=== PATIENT | female | born 1940 | race Caucasian/White ===

== ENCOUNTER 2024-01-12 10:40 | Observation (INO) | payer MEDICARE, SELFPAY ==
[2024-01-12] VITALS (18 sets, daily range): BP systolic 117–150; BP diastolic 43–94; PULSE 62–98; RESP 16–20; TEMP 36.3–36.5; O2SAT 83–99; BMI 30.9
--- NOTE | 2024-01-12 10:41 | ED_ITS ---
HPI - Fall General Chief Complaint: Trauma Stated Complaint: glf Time Seen by Provider: 01/12/24 10:40 History of Present Illness HPI Narrative: 83-year-old female with history of dementia, oriented to self only at baseline presents by EMS from her assisted facility for ground level fall. Patient had an unwitnessed fall with what appears to be facial injury. Patient denies loss of consciousness but is an unreliable historian. She does not use any blood thinners. Patient has a hematoma to the left side of her face. Patient denies pain in any other location and denies other injuries. Related Data Allergies Allergy/AdvReac Type Severity Reaction Status Date / Time No Known Drug Allergies Allergy Verified 01/12/24 10:54 Review of Systems Review of Systems Narrative: Limited due to dementia Patient History Social History Smoking Status: Never smoker Exam Narrative Exam Narrative: Const: Awake, alert, no acute distress, nontoxic appearing Eyes: PERRL, EOMI Cardiac: regular rate, regular rhythm, generalized left-sided rib tenderness without crepitus or deformity, no subcutaneous emphysema RESP: unlabored, clear bilaterally, no wheezing GI: Soft, nontender, nondistended, no rebound, no guarding MSK: Atraumatic, full range of motion, pulses equal Skin: Warm, Dry, contusion left forehead and periorbital region Neuro: AO x1, CN II-XII grossly intact, moves all extremities Initial Vital Signs Initial Vital Signs: Vital Signs Temperature 97.3 F L 01/12/24 10:40 Pulse Rate 80 01/12/24 10:40 Respiratory Rate 16 01/12/24 10:40 Blood Pressure 119/94 H 01/12/24 10:40 Pulse Oximetry 99 01/12/24 10:40 Oxygen Delivery Method Room Air 01/12/24 10:40 Course Orders Ordered: ED Orders 01/12/24 10:40 CT cervical spine wo con Stat CT facial bones wo con Stat CT head/brain wo con Stat 01/12/24 10:46 XR ribs LT min 3V w CXR1V Stat 01/12/24 11:40 CBC Auto Diff [Complete Blood Count AUTO DIFF] Stat CMP [Comprehensive Metabolic Panel] Stat 01/12/24 13:15 CT chest wo con Stat Vancomycin HCl/Dextrose (Vancomycin) 2,000 mg in 400 mls @ 200 mls/hr IV NOW ONE Stop: 01/12/24 14:38 Discontinued Medications Acetaminophen (Acetaminophen 325 Mg Tablet) 975 mg PO NOW ONE Stop: 01/12/24 10:47 Last Admin: 01/12/24 11:25 Dose: 975 mg Documented By: XIMENA Ceftriaxone Sodium 2,000 mg/ (Sodium Chloride) 100 mls @ 200 mls/hr IV NOW ONE Stop: 01/12/24 12:40 Last Infusion: 01/12/24 14:16 Dose: Infused Documented By: Admin: 01/12/24 12:50 Dose: 200 mls/hr Documented By: XIMENA Vital Signs Vital signs: Vital Signs - 8 hr 01/12/24 10:40 01/12/24 10:44 01/12/24 10:45 Temperature 97.3 F L Pulse Rate 80 79 Respiratory Rate 16 Blood Pressure 119/94 H Pulse Oximetry 99 84 L 83 L Oxygen Delivery Method Room Air 01/12/24 10:45 01/12/24 10:55 01/12/24 11:40 Temperature Pulse Rate 80 84 Respiratory Rate 18 Blood Pressure 119/94 H 150/90 H Pulse Oximetry 99 Oxygen Delivery Method 01/12/24 11:43 01/12/24 11:43 01/12/24 12:00 Temperature Pulse Rate 81 98 H Respiratory Rate Blood Pressure 128/58 L Pulse Oximetry 97 96 Oxygen Delivery Method 01/12/24 12:00 01/12/24 12:30 01/12/24 12:30 Temperature Pulse Rate 83 Respiratory Rate Blood Pressure 117/73 125/82 Pulse Oximetry 96 Oxygen Delivery Method 01/12/24 13:00 01/12/24 13:30 01/12/24 13:31 Temperature Pulse Rate 80 79 Respiratory Rate Blood Pressure 130/58 L Pulse Oximetry 95 94 Oxygen Delivery Method 01/12/24 13:31 01/12/24 14:02 Temperature Pulse Rate 74 74 Respiratory Rate Blood Pressure Pulse Oximetry 94 92 Oxygen Delivery Method MDM - Fall Differential Diagnosis Differential diagnosis: Likely fracture of wrist, compression fracture and concussion with loss of consciousness Lab Data 01/12/24 11:40 01/12/24 11:40 Labs: Lab Results 01/12/24 Range/Units 11:40 WBC 12.4 H (4.5-11.0) X10^3/uL RBC 4.11 (4.0-5.2) X10^6/uL Hgb 12.0 (12.0-16.0) g/dL Hct 36.7 (36-46) % MCV 89.3 (80-100) fL MCH 29.2 (26-34) PG MCHC 32.7 (30-36) % RDW 14.9 H (11.6-14.8) % Plt Count 272 (150-400) X10^3/uL Neut % (Auto) 87.3 H (50-75) % Lymph % (Auto) 4.2 L (25-40) % Snyder % (Auto) 6.8 (3-14) % Eos % (Auto) 1.5 L (2-4) % Baso % (Auto) 0.2 (0-2) % Neut # (Auto) 06920 H (5891-1428) /uL Lymph # (Auto) 500 L (5089-2147) /uL Snyder # (Auto) 800 (0-900) /uL Eos # (Auto) 200 (0-450) /uL Baso # (Auto) 0 (0-100) /uL Sodium 143 (137-145) mmol/L Potassium 3.9 (3.4-5.1) mmol/L Chloride 110 H (98-107) mmol/L Carbon Dioxide 30 (22-32) mmol/L BUN 37 H (7-17) mg/dL Creatinine 1.00 (0.52-1.04) mg/dL Estimated GFR 55 L (>60) mL/min BUN/Creatinine Ratio 37.0 H (6-22) Glucose 96 (80-110) mg/dL Calcium 9.6 (8.4-10.2) mg/dL Total Bilirubin 0.6 (0.2-1.3) mg/dL AST 28 (14-36) IU/L ALT 18 (<35) IU/L Alkaline Phosphatase 122 (38-126) U/L Total Protein 7.7 (6.3-8.2) g/dL Albumin 4.0 (3.5-5.0) g/dL Globulin 3.7 (1.7-4.1) g/dL Albumin/Globulin Ratio 1.1 (1.0-2.8) Imaging Data CT scan - chest: Radiologist's Impression: PROCEDURE: CT CHEST WO CON INDICATIONS: L RIB FRACTURES, FURTHER ASSESSMENT TECHNIQUE: Noncontrast 5 mm thick sections acquired from the pulmonary apices to the posterior costophrenic angles. 1 mm lung window, 5 mm thick coronal and sagittal and 7 mm axial MIP reformats were then acquired. For radiation dose reduction, the following was used: automated exposure control, adjustment of mA and/or kV according to patient size. COMPARISON: Left rib radiographs 01/12/2024. FINDINGS: Image quality: Diagnostic. Lower Neck: No enlarged lymph nodes. Thyroid: No thyroid nodules which require sonographic follow up, per consensus guidelines. Axillae: No enlarged lymph nodes. Chest Wall: Unremarkable. Bones: Bones are demineralized. Multiple left rib fractures with less than 1 shaft width displacement involving the lateral left 6th, 7th and 8th ribs. Nondisplaced left anterior 5th rib fracture. No acute vertebral body compression fracture. Multilevel degenerative changes of the visualized spine. Exaggerated thoracic kyphosis. Lungs and Pleura: No pneumothorax or pleural effusions. No consolidation or suspicious nodules. Heart: Heart size is normal. No pericardial effusion. Thoracic Vessels: The aorta and pulmonary arteries demonstrate normal size. Mediastinum and Odette: No enlarged lymph nodes. Esophagus: No wall thickening. No hiatal hernia. Upper Abdomen: Visualized upper abdomen solid organs and bowel loops appear normal. IMPRESSION: Left lateral 6th, 7th and 8th rib fractures with less than 1 shaft width displacement. Nondisplaced left anterior 5th rib fracture. Approved by: Chayo Hickman M.D. on 01/12/2024 at 12:56 CT - cervical spine: Radiologist's Impression: PROCEDURE: CT CERVICAL SPINE WO CON INDICATIONS: GLF/DEMENTIA/L FACIAL HEMATOMA TECHNIQUE: Noncontrast 3 mm thick sections acquired from the skull base to the T4 level. Sagittal and coronal reformats were then constructed. For radiation dose reduction, the following was used: automated exposure control, adjustment of mA and/or kV according to patient size. COMPARISON: None. FINDINGS: Image quality: Patient motion artifact limits evaluation. Bones: No fractures or dislocations. Visualized superior ribs are intact. Soft tissues: Prevertebral soft tissues are normal in thickness. No paravertebral hematomas. No apical pneumothoraces. IMPRESSION: Motion degraded exam. No acute displaced fracture or traumatic subluxation visualized. Approved by: Chayo Hickman M.D. on 01/12/2024 at 11:07 CT scan - head: Radiologist's Impression: PROCEDURE: CT FACIAL BONES WO CON INDICATIONS: GLF/DEMENTIA/L FACIAL HEMATOMA TECHNIQUE: Noncontrast 2.5 mm thick axial images acquired from the mandible through the frontal sinuses, with coronal and sagittal reformatting. For radiation dose reduction, the following was used: automated exposure control, adjustment of mA and/or kV according to patient size. COMPARISON: Same-day CT head noncontrast 01/12/2024. FINDINGS: Image quality: Motion degraded exam. Bones and teeth: Orbital cortes are intact. Sinus cortes show no fracture or deformity. Nasal bones and septum are intact. Visualized portions of the mandible demonstrate no fractures or subluxation. Zygomatic arches are intact. Pterygoid plates are intact. Visualized portions of the skull base and auditory canals are intact. Sinuses: Bilateral maxillary sinus mucous retention cysts. Mastoid air cells are aerated. Soft tissues: Left periorbital soft tissue swelling/hematoma. No enlarged lymph nodes. No soft tissue lacerations or debris. Bilateral lens replacement. Vascular: Visualized vascular structures appear normal in the absence of contrast. Bony vascular foramina and canals are intact. IMPRESSION: Left periorbital soft tissue swelling and hematoma. No associated craniofacial fracture identified within the limitation of motion degraded exam. Approved by: Chayo Hickman M.D. on 01/12/2024 at 11:15 PROCEDURE: CT HEAD/BRAIN WO CON INDICATIONS: GLF/DEMENTIA/L FACIAL HEMATOMA TECHNIQUE: Noncontrast 4.5 mm thick angled axial sections acquired from the foramen magnum to the vertex, with coronal and sagittal reformats. For radiation dose reduction, the following was used: automated exposure control, adjustment of mA and/or kV according to patient size. COMPARISON: None. FINDINGS: Image quality: Diagnostic. CSF spaces: Basal cisterns are patent. No extra-axial fluid collections. The ventricles are symmetric in size and shape. Brain: No intracranial bleeds or masses. There is moderate diffuse cerebral volume loss with resultant ventricular and sulcal prominence. There are periventricular and deep white matter chronic small vessel ischemic changes. There is intracranial internal carotid artery atherosclerosis. Skull and face: Please see separately dictated CT facial bones for additional details. Sinuses: Left maxillary sinus mucous retention cyst. IMPRESSION: No acute intracranial pathology. Please see separately dictated CT facial bones for craniofacial findings. Approved by: Chayo Hickman M.D. on 01/12/2024 at 11:01 [facility] Narrative Medical decision making narrative: Unwitnessed ground level fall with left-sided facial injury. Per EMS patient is mentating at baseline, she was oriented to self only. Not on blood thinners. CT brain, C-spine, max face ordered. On exam patient was also having some tenderness to her left chest wall. There was no crepitus or obvious deformity, however x-ray rib series ordered for assessment. Patient's daughter and son-in-law arrived shortly after. They live in [place] and today was the patient's 1st day in her new living facility. They state that they transitioned her from independent living to assisted living due to concerns about the patient caring for herself. They report concern about patient's bilateral lower extremity lymphedema and they are concerned because it appears much worse than the last time they saw her. They are concerned about cellulitis or infection. Patient does have erythema in her bilateral lower extremities. Some of this does appear to be chronic venous stasis changes, however it is warm to the touch and bright red. Vancomycin and Rocephin ordered for skin and soft tissue coverage. Laboratory work is significant for WBC count 12.4, hemoglobin 12.0, sodium 143, potassium 3.9, creatinine 1.00, GFR 55. CT brain, C-spine, maxillofacial bones shows no acute fracture or hemorrhage. Rib series significant for left 8th rib fracture with questionable 6th and 7th rib fractures. No pneumothorax seen. Plan to order chest CT dedicated to assess for rib fractures. Chest CT confirms multiple rib fractures including left lateral 6th, 7th, 8th ribs as well as anterior 5th rib fracture. Patient states she was comfortable when she was sitting still in bed, but any time she attempts to move she winces and grimaces and complains of severe pain. Discussed case with Dr. Holm of General surgery, who agrees to see patient in consult. Plan to admit patient to the hospital for treatment of lower extremity cellulitis as well as pain control of her multiple rib fractures. Critical Care Time Critical Care Time Critical Care Time: Yes Total Critical Care Time: 34 Attestation: Ground level fall with multiple left-sided rib fractures and cellulitis requiring IV antibiotics and admission. Discharge Plan Departure Patient Disposition: Admitted As Inpatient Clinical Impression: Lymphedema, Bilateral cellulitis of lower leg Multiple fractures of ribs Qualifiers: Encounter type: initial encounter Fracture type: closed Laterality: left Q ualified Code(s): S22.42XA - Multiple fractures of ribs, left side, initial encounter for closed fracture Fall Qualifiers: Encounter type: initial encounter Qualified Code(s): W19.XXXA - Unspecified fall, initial encounter Facial hematoma Qualifiers: Encounter type: initial encounter Qualified Code(s): S00.83XA - Contusion of other part of head, initial encounter Admit Date/Time: 01/12/24 14:22 Admit Provider: Elvis Ballard
--- NOTE | 2024-01-12 10:46 | DI.RAD.S_ITS ---
PROCEDURE: XR RIBS LT MIN 3V W CXR1V INDICATIONS: GLF/L RIB PAIN TECHNIQUE: 2 views of the ribs were acquired, along with a single view chest. COMPARISON: None. FINDINGS: Surgical changes and devices: None. Bones and chest wall: Left 8th rib fracture, query left 6th and 7th rib fracture. No suspicious bony lesions. Overlying soft tissues appear unremarkable. Lungs and pleura: No pleural effusions or pneumothorax. Lungs appear clear. Mediastinum: Mediastinal contours appear normal. Heart size is normal. IMPRESSION: Left 8th rib fracture. Query left 6th and 7th rib fracture. No pneumothorax. Approved by: Chayo Hickman M.D. on 01/12/2024 at 10:34
[2024-01-12] MEDS: ACETAMINOPHEN 325 MG TABLET 975 MG PO ×2 (11:25→16:43)
[2024-01-12 11:50] LABS: Add Manual Diff / Slide Review NO; Basophils Absolute Auto 0 /uL (0-100); Basophils Percent Auto 0.2 % (0-2); Eosinophils Absolute Auto 200 /uL (0-450); Eosinophils Percent Auto 1.5 % (2-4); Hematocrit 36.7 % (36-46); Lymphocytes Absolute Auto 500 /uL (1100-4500); Lymphocytes Percent Auto 4.2 % (25-40); Mean Corpuscular HGB Conc 32.7 % (30-36); Mean Corpuscular Hemoglobin 29.2 PG (26-34); Mean Corpuscular Volume 89.3 fL (80-100); Monocytes Absolute Auto 800 /uL (0-900); Monocytes Percent Auto 6.8 % (3-14); Neutrophils Absolute Auto 10800 /uL (1500-7000); Neutrophils Percent Auto 87.3 % (50-75); Platelet Count 272 X10^3/uL (150-400); Red Blood Cell Count 4.11 X10^6/uL (4.0-5.2); Red Cell Distribution Width 14.9 % (11.6-14.8); White Blood Cell Count 12.4 X10^3/uL (4.5-11.0)
[2024-01-12 12:01] LABS: Alanine Aminotransferase 18 IU/L (<35); Albumin Globulin Ratio 1.1 (1.0-2.8); Alkaline Phosphatase 122 U/L (38-126); Aspartate Aminotransferase 28 IU/L (14-36); Bilirubin Total 0.6 mg/dL (0.2-1.3); Blood Urea Nitrogen 37 mg/dL (7-17); Calcium 9.6 mg/dL (8.4-10.2); Carbon Dioxide 30 mmol/L (22-32); Chloride 110 mmol/L (98-107); Estimated Glomerular Filt Rate 55 mL/min (>60); Globulin 3.7 g/dL (1.7-4.1); Glucose 96 mg/dL (80-110); HEMOLYSIS < 15 (0-50); Potassium 3.9 mmol/L (3.4-5.1); Sodium 143 mmol/L (137-145); Total Protein 7.7 g/dL (6.3-8.2)
[2024-01-12] MEDS: cefTRIAXone 2,000 MG in SODIUM CHLORIDE 0.9% 100 ML 200 MG IV (12:50)
--- NOTE | 2024-01-12 13:15 | DI.CT.S_ITS ---
PROCEDURE: CT CHEST WO CON INDICATIONS: L RIB FRACTURES, FURTHER ASSESSMENT TECHNIQUE: Noncontrast 5 mm thick sections acquired from the pulmonary apices to the posterior costophrenic angles. 1 mm lung window, 5 mm thick coronal and sagittal and 7 mm axial MIP reformats were then acquired. For radiation dose reduction, the following was used: automated exposure control, adjustment of mA and/or kV according to patient size. COMPARISON: Left rib radiographs 01/12/2024. FINDINGS: Image quality: Diagnostic. Lower Neck: No enlarged lymph nodes. Thyroid: No thyroid nodules which require sonographic follow up, per consensus guidelines. Axillae: No enlarged lymph nodes. Chest Wall: Unremarkable. Bones: Bones are demineralized. Multiple left rib fractures with less than 1 shaft width displacement involving the lateral left 6th, 7th and 8th ribs. Nondisplaced left anterior 5th rib fracture. No acute vertebral body compression fracture. Multilevel degenerative changes of the visualized spine. Exaggerated thoracic kyphosis. Lungs and Pleura: No pneumothorax or pleural effusions. No consolidation or suspicious nodules. Heart: Heart size is normal. No pericardial effusion. Thoracic Vessels: The aorta and pulmonary arteries demonstrate normal size. Mediastinum and Odette: No enlarged lymph nodes. Esophagus: No wall thickening. No hiatal hernia. Upper Abdomen: Visualized upper abdomen solid organs and bowel loops appear normal. IMPRESSION: Left lateral 6th, 7th and 8th rib fractures with less than 1 shaft width displacement. Nondisplaced left anterior 5th rib fracture. Approved by: Chayo Hickman M.D. on 01/12/2024 at 12:56
[2024-01-12] MEDS: VANCOMYCIN 2,000 MG/400 ML PIGGYBACK 200 MG IV (14:22)
--- NOTE | 2024-01-12 15:26 | PC.NURSE ---
Dr. Ballard updated on allergies as they were not known at ED time of visit.
--- NOTE | 2024-01-12 15:49 | PC.NURSE ---
Addendum entered by Sandra Whatley R.N. 01/12/24 16:22: Called Anisha Conteh to request POLST form tony oates was sent. [facility] stated they do not have POLST form. Original Note: Admit: pt arrived via stretcher from ED at approximately 1530, transferred from stretcher to bed in room 215. VSS, A&Ox2, widespread excoriation in pannus and groin, BLE redness, 3+ edema, bruising and swelling of L eye. Amelia jimenez DPOA at bedside, providing history. Provider at bedside.
--- NOTE | 2024-01-12 16:23 | PM.HP.1 ---
History of Present Illness History of Present Illness Date Patient Seen: 01/12/24 Time Patient Seen: 16:00 Chief complaint: glf Narrative: Pt is an 83 yo female with history of dementia, depression, urinary incontinence, chronic LE lymphedema, TIA, severe hypertension, osteoporosis transported to ED by EMS post ground level fall outside of [facility]. Pt had moved in to [facility] just yesterday from independent living facility in [facility]. She had apparently walked a short distance outside and had unwitnessed fall. Found by passerby and taken inside where facility staff called EMS. Pt was found to have 4 left sided rib fractures on CT. Also noted to have left orbital hematoma without fracture on facial CT. Head and spine CT report showed no trauma or bleed. Pt has impaired short-term memory and not clear if she recalls fall this morning. She has fallen at least a couple of times in the past and hospitalized for traumatic shoulder fracture. Patient has history of chronic lymphedena of LEs. Her niece (POA) states apearance of legs has worsened although time frame is unclear. On med list it is noted she is on daily doxycycline, per med rec 30 tabs prescribed on 12/18. Pt denies pain in the legs. Denies fever, cough, other resp symptoms, hx of heart failure. [facility] Medical History (Updated 01/12/24 @ 15:23 by Carole Bui RN) Age-related cataract, morgagnian type, bilateral Alzheimer disease Urinary incontinence Rash and other nonspecific skin eruption Cellulitis of left lower limb Transient ischemic attack Osteoporosis Primary hypertension Personal history of malignant neoplasm of ovary Unspecified dementia, unspecified severity, without behavioral disturbance, psychotic disturbance, mood disturbance, and anxiety Unspecified dementia, mild, without behavioral disturbance, psychotic disturbance, mood disturbance, and anxiety Depression, unspecified Unspecified cataract Localized edema Social History Smoking Status: Never smoker alcohol intake: former Meds Home Medications and Allergies Home Medications Medication Instructions Recorded Confirmed Type Lactobacillus rhamnosus GG 10 1 cap PO DAILY 01/12/24 01/12/24 History billion cell-inulin 200 mg capsule ([employer]) acetaminophen 325 mg capsule 650 mg PO Q4H PRN pain/fever 01/12/24 01/12/24 History aspirin 81 mg chewable tablet 81 mg PO DAILY 01/12/24 01/12/24 History cholecalciferol (vitamin D3) 25 25 mcg PO DAILY 01/12/24 01/12/24 History mcg (1,000 unit) tablet (Vitamin D3) cranberry 500 mg capsule 1,000 mg PO DAILY 01/12/24 01/12/24 History donepezil 10 mg tablet 10 mg PO DAILY 01/12/24 01/12/24 History doxycycline hyclate 100 mg capsule 100 mg PO DAILY 01/12/24 01/12/24 History enalapril maleate 20 mg tablet 30 mg PO DAILY 01/12/24 01/12/24 History furosemide 40 mg tablet 40 mg PO DAILY 01/12/24 01/12/24 History lorazepam 0.5 mg tablet 0.5 mg PO DAILY PRN Anxiety 01/12/24 01/12/24 History magnesium hydroxide 400 mg/5 mL 400 mg PO DAILY PRN Constipation 01/12/24 01/12/24 History oral suspension (Milk of Magnesia) melatonin 3 mg tablet 3 mg PO BEDTIME PRN Insomnia 01/12/24 01/12/24 History multivitamin with minerals 1 tab PO DAILY 01/12/24 01/12/24 History nebivolol 10 mg tablet 10 mg PO DAILY 01/12/24 01/12/24 History quetiapine 50 mg tablet 50 mg PO BID 01/12/24 01/12/24 History sertraline 50 mg tablet 50 mg PO DAILY 01/12/24 01/12/24 History spironolactone 25 mg tablet 25 mg PO DAILY 01/12/24 01/12/24 History triamcinolone acetonide 0.1 % 1 applic topical BID 01/12/24 01/12/24 History topical cream Allergies Allergy/AdvReac Type Severity Reaction Status Date / Time amoxicillin Allergy Unknown Verified 01/12/24 15:23 cephalexin Allergy Unknown Verified 01/12/24 15:23 Sulfa (Sulfonamide Allergy Unknown Verified 01/12/24 15:23 Antibiotics) Exam Vital Signs (past 8 hours): - 01/12/24 10:40 01/12/24 10:44 01/12/24 10:45 Temperature 97.3 F L Pulse Rate 80 79 Respiratory Rate 16 Blood Pressure 119/94 H Pulse Oximetry 99 84 L 83 L Oxygen Delivery Method Room Air 01/12/24 10:45 01/12/24 10:55 03/17/24 11:40 Temperature Pulse Rate 80 84 Respiratory Rate 18 Blood Pressure 119/94 H 150/90 H Pulse Oximetry 99 Oxygen Delivery Method 01/12/24 11:43 01/12/24 11:43 01/12/24 12:00 Temperature Pulse Rate 81 98 H Respiratory Rate Blood Pressure 128/58 L Pulse Oximetry 97 96 Oxygen Delivery Method 01/12/24 12:00 01/12/24 12:30 01/12/24 12:30 Temperature Pulse Rate 83 Respiratory Rate Blood Pressure 117/73 125/82 Pulse Oximetry 96 Oxygen Delivery Method 01/12/24 13:00 01/12/24 13:30 01/12/24 13:31 Temperature Pulse Rate 80 79 Respiratory Rate Blood Pressure 130/58 L Pulse Oximetry 95 94 Oxygen Delivery Method 01/12/24 13:31 01/12/24 14:02 01/12/24 14:30 Temperature Pulse Rate 74 74 62 Respiratory Rate Blood Pressure 130/58 L Pulse Oximetry 94 92 93 Oxygen Delivery Method 01/12/24 15:00 01/12/24 15:13 01/12/24 16:16 Temperature Pulse Rate 74 68 Respiratory Rate 16 Blood Pressure 130/58 L 128/58 L Pulse Oximetry 95 96 Oxygen Delivery Method Room Air Room Air Oxygen Delivery Method Room Air Narrative Exam Narrative: General: alert, pleasant, calm HEENT: left periorbital edema, no facial deformity, rajni clear Lungs: clear Heart: regular, no murmur Abd: soft, nt Ext: bilateral 4+ weeping edema below knees, shallow stasis ulcerations in bilat LEs, sig erythema shins/calves above ankles, patchy scaling of inflamed skin areas, onychomycosis Skin: additionally has superficial excoriation, weeping and erythema below left breast Neuro: alert, oriented to person and hospital only, cooperative Objective Labs 01/12/24 11:40 01/12/24 11:40 Labs: Laboratory Results - last 24 hr 01/12/24 11:40 WBC 12.4 H RBC 4.11 Hgb 12.0 Hct 36.7 MCV 89.3 MCH 29.2 MCHC 32.7 RDW 14.9 H Plt Count 272 Neut % (Auto) 87.3 H Lymph % (Auto) 4.2 L Kingfisher % (Auto) 6.8 Eos % (Auto) 1.5 L Baso % (Auto) 0.2 Neut # (Auto) 67225 H Lymph # (Auto) 500 L Kingfisher # (Auto) 800 Eos # (Auto) 200 Baso # (Auto) 0 Sodium 143 Potassium 3.9 Chloride 110 H Carbon Dioxide 30 BUN 37 H Creatinine 1.00 Estimated GFR 55 L BUN/Creatinine Ratio 37.0 H Glucose 96 Calcium 9.6 Total Bilirubin 0.6 AST 28 ALT 18 Alkaline Phosphatase 122 Total Protein 7.7 Albumin 4.0 Globulin 3.7 Albumin/Globulin Ratio 1.1 Assessment & Plan Assessment & Plan narrative: 1. Ground level fall with multiple rib fractures -on CT fractures of left 5 th, 6 th, 7 th and 8 th ribs -Tylenol 975 mg q8 hours -consult PT and OT (pt currently uses cane and has hx of prior falls) 2. Left orbital hematoma without fracture -monitor 3. Chronic bilateral LE lymphedema with possible cellulitis -pt currently on doxycycline prescribed since 12/19 -allergy listed to ammoc, cephalexin and sulfa -treat poss cellulitis with Vancomycin, pharmacy to dose -cont TAC 0.1% bid -wound care consult 4. Hypertension -hx sev hypertension, appears well managed now -cont current meds (enalepril, furosemide, spironolactone, nebivolol) -denies hx CHF 5. Dementia -appears at baseline with short term memory loss -per deannedgardo has hx of delirium in hospital setting -cont donepezil -monitor for acute delirium 6. History of depression -cont sertraline, quetiapine, and takes lorazepam prn 7. Insomnia -cont melatonin HS prn DVT prevention: enoxaprin DPOA: Amelia vogt Code status: DNR (Per niece), POLST not available
[2024-01-12] MEDS: DOCUSATE 100 MG CAPSULE PO (20:15)
[2024-01-12] MEDS: MELATONIN 3 MG TABLET PO (20:15)
[2024-01-12] MEDS: QUETIAPINE 25 MG TABLET 50 MG PO (20:15)
[2024-01-13] MEDS: ACETAMINOPHEN 325 MG TABLET 975 MG PO ×3 (01:11→16:32)
[2024-01-13 01:27] VITALS: O2SAT 96
[2024-01-13 01:38] VITALS: BP 119/42; PULSE 60; RESP 18; TEMP 35.9; O2SAT 96
[2024-01-13 05:38] VITALS: BP 138/56; PULSE 60; RESP 17; TEMP 36.1; O2SAT 97
[2024-01-13 08:23] VITALS: BP 132/52; PULSE 65; O2SAT 96
--- NOTE | 2024-01-13 08:48 | PC.NURSE ---
Addendum entered by Angy Shi R.N. 01/13/24 11:24: Patient worked with pt/ot and her sats went down to the mid 80s with exertion. She recovers at rest and is in the 90s. Will keep an eye on her oxygen saturations. Original Note: Patient has 3+ lymph edema to her bilateral lower extremities, they are dry and bright red. She states that she is comfortable at this time. She ate breakfast and is now watching television.
[2024-01-13] MEDS: ENOXAPARIN 40 MG/0.4 ML SYRINGE SUBCUT (09:23)
[2024-01-13] MEDS: ASPIRIN 81 MG CHEW TAB PO (09:24)
[2024-01-13] MEDS: DONEPEZIL 5 MG TABLET 10 MG PO (09:24)
[2024-01-13] MEDS: SPIRONOLACTONE 25 MG TABLET PO (09:24)
[2024-01-13] MEDS: FUROSEMIDE 40 MG TABLET PO (09:24)
[2024-01-13] MEDS: SERTRALINE 50 MG TABLET PO (09:24)
[2024-01-13] MEDS: DOCUSATE 100 MG CAPSULE PO ×2 (09:24→20:07)
[2024-01-13] MEDS: QUETIAPINE 25 MG TABLET 50 MG PO ×2 (09:26→20:07)
[2024-01-13] MEDS: ENALAPRIL 5 MG TABLET 30 MG PO (09:58)
--- NOTE | 2024-01-13 10:40 | OT.IP.EVAL ---
Past Medical History (Last Updated 01/12/24 @ 15:23 by Carole Bui RN) Age-related cataract, morgagnian type, bilateral Alzheimer disease Cellulitis of left lower limb Depression, unspecified Localized edema Osteoporosis Personal history of malignant neoplasm of ovary Primary hypertension Rash and other nonspecific skin eruption Transient ischemic attack Unspecified cataract Unspecified dementia, mild, without behavioral disturbance, psychotic disturbance, mood disturbance, and anxiety Unspecified dementia, unspecified severity, without behavioral disturbance, psychotic disturbance, mood disturbance, and anxiety Urinary incontinence Occupational Therapy Inpatient Evaluation/Re-Eval M1 PT/OT-IP Prior Functional Status Start: 01/13/24 09:07 Freq: NEEDED Status: Active Protocol: Document 01/13/24 10:05 MB (Rec: 01/13/24 11:23 MB [id number]) Medical Review Prior Functional Status Medical History Reviewed Yes Communication Unsure baseline diet and communication, pt with history of memory changes Mobility and Gait Falls, used SPC Activities of Daily Living and IADL's May have needed assistance but was previously at independent living and not receiving a lot of assistance Social History Household Members none Living Arrangements Assisted Living Number of Floors (Floors) One Floor Number of Stairs To Enter/Railing? No steps Home Equipment Straight Cane Employment Status Retired Additional Social History Comment Pt lives at facility and has accessible BR and living situation. She is sleeping in recliner vs hospital adjustable bed M1 PT/OT-IP Prior Functional Status Start: 01/13/24 11:07 Freq: NEEDED Status: Active Protocol: Document 01/13/24 11:08 CGR (Rec: 01/13/24 11:28 CGR [id number]) Medical Review Prior Functional Status Medical History Reviewed Yes Communication Pt is an effective verbal communicator but is advanced dementia. Mobility and Gait Pt was ambulating short distances with a SPC. Pt was minimally SOB with ambulation. Activities of Daily Living and IADL's Pt was starting to have difficulty with simple ADLs and her grooming and hygiene were starting to suffer per the niece. Prior Functional Level (Other details) Pt just moved into a new facility in [place] where she has a good friend near by. Social History Household Members caregiver Living Arrangements Assisted Living Number of Stairs To Enter/Railing? elevator to room Home Environment High Toilet,Walk in Shower, Built-In Shower Seat Home Equipment Straight Cane,Grab Bars Near Toilet,Grab Bars In Shower Employment Status Retired Additional Social History Comment Pt's niece answered questions to the best of her knowlege as pt has just moved into her new facility. M2 OT-IP Current Condition Start: 01/13/24 11:07 Freq: Status: Active Protocol: Document 01/13/24 11:08 CGR (Rec: 01/13/24 11:28 CGR [id number]) Occupational Therapy Current Condition Current Condition Evaluation Date 01/13/24 Treatment Diagnosis GLF with L rib fx x4 and L orbital hematoma Diagnosis Onset Date 01/12/24 M3 OT- IP Subjective and Pain Start: 01/13/24 11:07 Freq: Status: Active Protocol: Document 01/13/24 11:08 CGR (Rec: 01/13/24 11:28 CGR [id number]) OT- Subjective Occupational Therapy Visit Type Type Initial Evaluation Visit Start Time 09:55 Visit Stop Time 10:40 Notes additional time spent speaking with family and organizing care. OT Pain Assessment Pain When Pain Assessed During Mobility Pain Present Pain Present Pain Reported Location Left Medial Chest Scale Used did not rate Pain Behaviors Facial Grimacing,Guarding Management Techniques Distraction,Modification of Treatment,Re-positioning M4 OT- IP ADL's Start: 01/13/24 11:07 Freq: Status: Active Protocol: Document 01/13/24 11:08 CGR (Rec: 01/13/24 11:28 CGR [id number]) OT [id number] Comments OT Self-Feeding Comments not meal time OT ADL-Grooming General Evaluation Grooming Ability Minimal Assistance Comments OT Grooming Comments Pt washed hands standing at sink with min a for getting soap and getting automatic water started. OT ADL-Oral Care Comments Oral Care Comments not performed OT ADL-Dressing General Eval Lower Body Dressing Ability Contact Guard Assistance,Total Assistance Areas Needing Assistance Underpants/Brief,Socks Comments OT Dressing Comments Pt needed CGA for donning brief and total assist for socks. OT ADL-Toileting General Evaluation Toileting Ability Standby Assistance Areas Needing Assistance Manage Clothing Comments OT Toileting Comments Pt was able to perform pericare OT ADL-Bathing Comments OT Bathing Comments not performed M5 OT- IP IADL's Start: 01/13/24 11:07 Freq: Status: Active Protocol: Document 01/13/24 11:08 CGR (Rec: 01/13/24 11:28 CGR [id number]) OT-Instrumental Activities of Daily Living Deficits IADL Deficits Identified Deficits Home Safety Awareness Awareness of Need for Assistance at Home Decreased Awareness Ability to Problem Solve Emergency Unable to Problem Solve Situations Medication Management Medication Management Caregiver Administers Money Management Money Management Caregiver Provides Assistance Meal Preparation Meal Preparation Caregiver Provides Assist Medical Secretary Medical Secretary Caregiver Provides Assist Driving Driving Comments Pt does not drive at baseline. M6 OT- IP Functional Cognition Start: 01/13/24 11:07 Freq: Status: Active Protocol: Document 01/13/24 11:08 CGR (Rec: 01/13/24 11:28 CGR [id number]) Cognitive Factors Limiting Selfcare Function Cognitive Ability Level of Alertness Alert Patient Orientation Name,Place Attention Span Ability Capable of Focused Attention, Capable of Sustained Attention Ability to Follow Commands Able to Follow One Step Commands with Increased Time, Able to Follow One Step Commands with Repetition Memory Description Short Term Impaired Cognitive Comments Cognitive Assessment Comments Pt would benefit from a formal cog assessment OT- Vision and Hearing OT- Hearing Assessment OT- Hearing Assessment WFL OT- Vision Assessment Visual Acuity WFL Visual Attentiveness WFL Occular Pursuits WFL Visual Convergence WFL M7 OT- IP Mobility and Balance Start: 01/13/24 11:07 Freq: Status: Active Protocol: Document 01/13/24 11:08 CGR (Rec: 01/13/24 11:28 CGR [id number]) OT- Bed Mobility Assessment Supine to Sit Supine to Sit Assist Standby Assistance,Head of Bed Elevated,Bedrails Scooting Scooting to Edge of Bed Moderate Assistance,1 Person Assistance,Head of Bed Elevated,Bedrails OT-Transfer Assessment Sit to and From Stand Sit to and from Stand Minimal Assistance,1 Person Assistance Transfers Transfer Ability Minimal Assistance,1 Person Assistance Technique Transfer Destination Bed,Chair,Toilet Transfer Technique Stand Step Pivot Devices Transfer Assistive Devices Gait Belt,Front Wheeled Walker Comments Mobility Comments Pt ambulated to toilet then to the sink for hand cleaning before returning to the chair. OT- Gait Assessment Gait Gait Assistance Required: Contact Guard Assist Assistive Devices Assistive Device Gait Belt,Front Wheeled Walker OT- Balance Assessment Sitting Balance and Reactions Static Sitting Balance Ability Good Dynamic Sitting Balance Ability Good M8 OT- IP Objective Assessments Start: 01/13/24 11:07 Freq: Status: Active Protocol: Document 01/13/24 11:08 CGR (Rec: 01/13/24 11:28 CGR [id number]) OT Gross Range of Motion Upper Extremity Range of Motion Assessment Left Impaired ROM Impairments L impaired from pain, fall with L sided rib fx. Pt also has a hx of L shld fx. OT Strength Upper Extremity Strength Assessment Left Impaired Comments Strength Comments RUE grossly 4/5 L hand 4/5 OT- Coordination Assessment Upper Extremity Finger to Nose Test Within Functional Limits Finger Tapping Test Within Functional Limits OT-Muscle Tone Assessment Muscle Tone WNL Yes OT Sensation Assessment Edema Edema Present Edema Comments BLE M9 OT- IP Assessment and Plan Start: 01/13/24 11:07 Freq: Status: Active Protocol: Document 01/13/24 11:08 CGR (Rec: 01/13/24 11:28 CGR [id number]) OT Summary Assessment and Plan Potential Rehabilitation Potential Good Analytic Complexity at Evaluation High Summary OT Impairments Pain,Range of Motion,Strength, Balance,Functional Cognition, Functional Mobility,Grooming, Dressing,Toileting,Bathing, Toilet Transfers,Shower Transfers,Activity Tolerance Progress Towards Goals Progressing Toward Goals Assessment Summary Pt presents as a high complexity evaluation s/p admit for fall with L rib fx. Pt is SOB with activity and limited d/t pain. With activity pt's O2 stats dropped to 82-86 without supplemental O2. Pt also has a dx of dementia and is unaware of her fall. Pt just moved into [facility] one day before the fall. Recommend that pt return to [facility] with home health OT and PT when medically ready for discharge. Goals Self-Feeding Goal Independent Grooming Goal Independent Dressing Goal Standby Assistance Toileting Goal Independent Bathing Goal Minimal Assistance Toilet Transfer Goal Independent Shower Transfer Goal Minimal Assistance Days to Meet Goals 5 Frequency of Treatment Frequency Of Treatment Once a Day Treatment Plan OT Treatment Plan ADL Training,Functional Cognition Training,Functional Mobility,Patient/Family Education,Discharge Planning Other Treatment Recommendations and Next Cog assessment, shower if able Treatment Focus , ADLs standing, LB dressing. Discharge Recommendations OT Discharge Recommendations Home with 24/ Assist Available Home Equipment Needs 2ww Transportation Needs at Discharge Private Vehicle
--- NOTE | 2024-01-13 11:23 | PT.IIE ---
Medical History (Last Updated 01/12/24 @ 15:23 by Carole Bui RN) Age-related cataract, morgagnian type, bilateral Alzheimer disease Cellulitis of left lower limb Depression, unspecified Localized edema Osteoporosis Personal history of malignant neoplasm of ovary Primary hypertension Rash and other nonspecific skin eruption Transient ischemic attack Unspecified cataract Unspecified dementia, mild, without behavioral disturbance, psychotic disturbance, mood disturbance, and anxiety Unspecified dementia, unspecified severity, without behavioral disturbance, psychotic disturbance, mood disturbance, and anxiety Urinary incontinence Physical Therapy Inpatient Evaluation/Re-Eval M1 PT/OT-IP Prior Functional Status Start: 01/13/24 09:07 Freq: NEEDED Status: Active Protocol: Document 01/13/24 10:05 MB (Rec: 01/13/24 11:23 MB [id number]) Medical Review Prior Functional Status Medical History Reviewed Yes Communication Unsure baseline diet and communication, pt with history of memory changes Mobility and Gait Falls, used SPC Activities of Daily Living and IADL's May have needed assistance but was previously at independent living and not receiving a lot of assistance Social History Household Members none Living Arrangements Assisted Living Number of Floors (Floors) One Floor Number of Stairs To Enter/Railing? No steps Home Equipment Straight Cane Employment Status Retired Additional Social History Comment Pt lives at facility and has accessible BR and living situation. She is sleeping in recliner [facility] adjustable bed M2 PT-IP Current Condition Start: 01/13/24 09:07 Freq: NEEDED Status: Active Protocol: Document 01/13/24 10:05 MB (Rec: 01/13/24 11:23 MB [id number]) Physical Therapy Current Condition Current Condition Evaluation Date 01/13/24 Treatment Diagnosis Fall and left orbital injury and many rib fractures M3 PT-IP Subjective Start: 01/13/24 09:07 Freq: NEEDED Status: Active Protocol: Document 01/13/24 10:05 MB (Rec: 01/13/24 11:23 MB [id number]) Subjective Physical Therapy Visit Type Type Initial Evaluation Visit Start Time 10:05 Visit Stop Time 10:44 Number of YARN SORTER Visits 0 Physical Therapy Visit Comments Patient Comments I like my cane. I am going back to my facility. Pt with frequent confusion during assessment and then often expresses some insight to goals and living. Therapy Pain Assessment Pain When Pain Assessed During Mobility Pain Present Pain Present Pain Reported Location Left Medial Chest Intensity 5 Scale Used Colleen (Faces) M4 PT-IP Mobility and Gait Start: 01/13/24 09:07 Freq: NEEDED Status: Active Protocol: Document 01/13/24 10:05 MB (Rec: 01/13/24 11:23 MB [id number]) PT-Bed Mobility Assessment Rolling Type of Rolling Roll to Right Level of Assist Contact Guard Assistance Supine to Sit Supine to Sit Contact Guard Assistance Scooting Scooting to Edge of Bed Moderate Assistance PT-Transfer Assessment Sit to and From Stand Sit to and from Stand Minimal Assistance,1 Person Assistance,Use of Upper Extremities Equipment Transfer Assistive Device Gait Belt,Front Wheeled Walker Orthotic/Prosthetic Devices or Brace: No Transfers Transfer Destination Chair Transfer Technique Ambulation Transfer Ability Level of Assist Minimal Assistance,1 Person Assistance,Use of Upper Extremities Comments Mobility Comments Pt with painful and slow mobility, especially with bed mobility and she requires cues to push up with hands on rail , chair and bed rather than reaching for walker. Pt typically uses a cane and con' t to mention this during the assessment and she is very RANDOLPH and has pain from rib fractures and so RW encouraged today. Pt requires assistance and cues to reach for the RW and to use it. Pt's O2 sats are in the 90s on RA at rest and decrease to 83-86% with mobility and she is accordingly very RANDOLPH and requiring rest break. See OT note for toileting and hand washing needs today. Gait Assessment Gait Gait Assistance Required: Contact Guard Assist,1 Person Assist Distance (Feet) 20 Assistive Devices Assistive Device Gait Belt,Front Wheeled Walker Orthotic/Prosthetic Devices or Brace: No Gait Deviations General Gait Pattern Antalgic,Decreased Stride Length,Decreased Feet Clearance,Flexed Trunk,Wide Based Gait Factors Limiting Gait Function Factors Limiting Gait Function Decreased Activity Tolerance, Difficulty Following Directions,Limited Range of Motion,Pain,Poor Balance,Poor Safety Awareness,Respiratory Distress Comments Gait Comments Pt con't to require cues to use the RW with walking and to step closer to the walker. Pt with red and edematous B LEs PT-Balance Assessment Sitting Balance and Reactions Static Sitting Balance Ability Good Dynamic Sitting Balance Ability Good Standing Balance and Reactions Static Standing Balance Ability Good Dynamic Standing Balance Ability Fair Device Used RW M5 PT-IP Objective Assessments Start: 01/13/24 09:07 Freq: NEEDED Status: Active Protocol: Document 01/13/24 10:05 MB (Rec: 01/13/24 11:23 MB [id number]) Orientation Orientation/Cognition Level of Alertness Confusional State Orientation Name,Place Language Function Ability No Deficits Noted Safety Awareness Decreased Safety Awareness Memory Description Short Term Impaired,Cloth Finisher Impaired Gross Range of Motion Upper Extremity ROM Impairments Defer to OT Lower Extremity ROM Assessment Bilaterally Impaired Impairments B distal LE edema and decreased ankle ROM when asked to move feet Strength Lower Extremity Strength Assessment Bilaterally Impaired Comments Strength Comments Functionally, B LEs at least 3 to 3-/5 with bed mobility, transfers and gait M6 PT-IP Treatment Start: 01/13/24 09:07 Freq: NEEDED Status: Active Protocol: Document 01/13/24 10:05 MB (Rec: 01/13/24 11:23 MB [id number]) Physical Therapy Treatment Education Education Provided Safety Other Treatments Other Treatment Performed Toileting, hand washing and brief change all completed during assessment and speaking with family about DME and d/c also during assessment M7 PT-IP Assessment and Plan Start: 01/13/24 09:07 Freq: NEEDED Status: Active Protocol: Document 01/13/24 10:05 MB (Rec: 01/13/24 11:23 MB [id number]) PT Summary Assessment and Plan Potential Rehabilitation Potential Fair Status of Condition at Evaluation Evolving Summary Impairments Pain,ROM,Strength,Balance, Cognition,Bed Mobility, Transfers,Gait,Activity Tolerance Progress Towards Goals Slow Progress due to Pain,Slow Progress due to Medical Issues,Slow Progress due to Activity Tolerance Assessment Summary Pt is an 83 y/o female presenting with reports of left rib area pain, B LE edema and erythema and severe RANDOLPH with dropping O2 on RA with mobility. Attempted to get BP reading in forearm and machine takes two times to read so ? accuracy and it does not drop with supine to sit. Pt tends to move her arms and legs when sitting. She is not dizzy with getting up. She requires cues for all mobility and does not like the RW. Given memory impairment, teaching a new AD may be a challenge and so could try mobility with her hurry cane tomorrow before recommending RW for d/c. Recommend 24 hour superv and PT at d/c and family prefers [facility] and services given pt's memory challenges and PT is in agreement with this. Goals Bed Mobility Goal Independent Transfer Goal Standby Assistance,Cane,Front Wheeled Walker Gait Goal Standby Assistance,Cane,Front Wheel Walker Gait Distance 75 Days to Meet Goals 5 Frequency of Treatment Frequency Of Treatment Once a Day Treatment Plan Physical Therapy Treatment Plan Bed Mobility Training,Transfer Training,Gait Training, Therapeutic Exercise,Balance Retraining,Discharge Planning, Hot or Cold Pack,Neuromuscular Re-ed Weight Bearing Status Weight Bearing Status Weight Bear as Tolerated Recommendations To Nursing Amount of Assist Needed 1 Person Assist Discharge Recommendations PT Discharge Recommendations Home with 20/05 Assist Available,Home Health Transportation Needs at Discharge Private Vehicle
--- NOTE | 2024-01-13 11:30 | PM.PN.1 ---
Subjective Subjective Interval history: 83 F admitted with rib fractures and an orbital hemotoma. Her pain is controlled. She denies complaints today. Pain is controlled. Has been having dyspnea on exertion. Exam Vital Signs (past 8 hours): - 01/13/24 05:38 01/13/24 05:38 01/13/24 08:23 Temperature 96.9 F L Pulse Rate 60 65 Respiratory Rate 17 Blood Pressure 138/56 L 132/52 L Pulse Oximetry 97 97 96 Oxygen Delivery Method Room Air Oxygen Flow Rate 0 0 01/13/24 09:00 Temperature Pulse Rate Respiratory Rate Blood Pressure Pulse Oximetry Oxygen Delivery Method Room Air Oxygen Flow Rate Oxygen Delivery Method Room Air Oxygen Flow Rate 0 Narrative Exam Narrative: General: alert, pleasant, calm HEENT: left periorbital edema, no facial deformity, rajni clear Lungs: clear Heart: regular, no murmur Abd: soft, nt Ext: bilateral 2-3+ weeping edema below knees, shallow stasis ulcerations in bilat LEs, sig erythema shins/calves above ankles but not warm or tender. patchy scaling of inflamed skin areas, onychomycosis Skin: additionally has superficial excoriation, weeping and erythema below left breast Neuro: alert, oriented to person and hospital, cooperative Objective Labs 01/12/24 11:40 01/12/24 11:40 Labs: Laboratory Results - last 24 hr 01/12/24 11:40 WBC 12.4 H RBC 4.11 Hgb 12.0 Hct 36.7 MCV 89.3 MCH 29.2 MCHC 32.7 RDW 14.9 H Plt Count 272 Neut % (Auto) 87.3 H Lymph % (Auto) 4.2 L [place] % (Auto) 6.8 Eos % (Auto) 1.5 L Baso % (Auto) 0.2 Neut # (Auto) 13335 H Lymph # (Auto) 500 L [place] # (Auto) 800 Eos # (Auto) 200 Baso # (Auto) 0 Sodium 143 Potassium 3.9 Chloride 110 H Carbon Dioxide 30 BUN 37 H Creatinine 1.00 Estimated GFR 55 L BUN/Creatinine Ratio 37.0 H Glucose 96 Calcium 9.6 Total Bilirubin 0.6 AST 28 ALT 18 Alkaline Phosphatase 122 Total Protein 7.7 Albumin 4.0 Globulin 3.7 Albumin/Globulin Ratio 1.1 [facility] Medical History (Updated 01/12/24 @ 15:23 by Carole Bui RN) Age-related cataract, morgagnian type, bilateral Alzheimer disease Urinary incontinence Rash and other nonspecific skin eruption Cellulitis of left lower limb Transient ischemic attack Osteoporosis Primary hypertension Personal history of malignant neoplasm of ovary Unspecified dementia, unspecified severity, without behavioral disturbance, psychotic disturbance, mood disturbance, and anxiety Unspecified dementia, mild, without behavioral disturbance, psychotic disturbance, mood disturbance, and anxiety Depression, unspecified Unspecified cataract Localized edema Social History household members: caregiver Smoking Status: Never smoker alcohol intake: former Assessment & Plan Assessment & Plan narrative: 1. Ground level fall with multiple rib fractures and acute respiratory failure with hypoxia. -on CT fractures of left 5 th, 6 th, 7 th and 8 th ribs -Tylenol 975 mg q8 hours, pain is fairly well controlled -consult PT and OT (pt currently uses cane and has hx of prior falls) -dyspnea with ambulation along with desaturation today to mid 80s with quick recovery. Will check pro-BNP, ordered for TTE as just moved here locally. 2. Left orbital hematoma without fracture -continue pain control as noted above. 3. Chronic bilateral LE lymphedema with possible cellulitis -pt currently on doxycycline prescribed since 12/19 -allergy listed to ammoc, cephalexin and sulfa -treat poss cellulitis with Vancomycin, pharmacy to dose, will continue for now -cont TAC 0.1% bid 4. Hypertension -hx sev hypertension, appears well managed now -cont current meds (enalepril, furosemide, spironolactone, nebivolol) -denies hx CHF 5. Dementia -appears at baseline with short term memory loss -per torie has hx of delirium in hospital setting -cont donepezil -monitor for acute delirium 6. History of depression -cont sertraline, quetiapine, and takes lorazepam prn 7. Insomnia -cont melatonin HS prn DVT prevention: enoxaprin DPOA: Amelia vogt Code status: DNR (Per niece), POLST not available Discussed with PT/OT today and case management to contribute to above history, assessment and plan.
--- NOTE | 2024-01-13 11:42 | CM.DANOTE ---
DCP Assessment Note Pt is a 83yo F here following a fall/broken ribs. Pt has PMH of dementia. PCP None at this time. Pt DPOA/Niece Amelia is [facility] PRIMER WATERPROOFING MACHINE ADJUSTER reviewed EMR. Per hospitalist, anticipate dc tomorrow due to pt's O2 levels dropping during ambulation. Per chart review, pt recently moved in to [facility] yesterday. Pt had a fall resulting to left sided rib fractures. Per PT/OT, rec home with HH. PRIMER WATERPROOFING MACHINE ADJUSTER met with pt/niece(POA) Amelia and nephew in law (Pat) in waiting room/at bedside. Confirmed recently moved to [facility] after being disappointed in level of care from previous CARE HOME. Niece confirms attempting to get care with PCP on [facility]. Pt/family interested in HH for RN/PT/OT/BILLING CONTROL CLERK. Pt normally uses cane at baseline. Due to current lack of PCP, family and pt report understanding option for HH is [facility]. PRIMER WATERPROOFING MACHINE ADJUSTER provided family and pt information on PP CGs in [facility] booklet to hire a PP CG while pt is getting settled in at [facility]. Niece/nephew in law live in and cannot be with pt frequently to assist but are willing and heavily involved in assisting pt as much as possible from afar. PRIMER WATERPROOFING MACHINE ADJUSTER lvm with Sandra at [facility]. ROLDAN Chang kindly agreed to email initial referral information. PRIMER WATERPROOFING MACHINE ADJUSTER completed f2f and placed HH order. PRIMER WATERPROOFING MACHINE ADJUSTER spoke with Shaista at [facility]. Confirm do not need to do bedside assessment prior to dc. ROLDAN Chang faxed (f [phone]) updated clinicals. Plan; anticipate dc home to [facility] tomorrow, family to transport. Sig to follow for RN/PT/OT/BILLING CONTROL CLERK pending acceptance. POA coordinating f/u with PCP/PP CGs. CM team will continue to follow closely. CAROLYNE Russell Discharge Planning/Care Management Advanced directive, confirm from FAMILY Start: 01/12/24 15:51 Freq: Q24H Status: Active Protocol: Document 01/12/24 16:23 KB (Rec: 01/12/24 16:24 KB [id number]) Advance Directive, confirm on record Time 16:24 Person contacted Amelia ShepardDorotheaRigoberto Copy received No CM Discharge Assessment Start: 01/13/24 11:40 Freq: Status: Active Protocol: Document 01/13/24 11:40 SL (Rec: 01/13/24 11:42 SL [id number]) Discharge Planning Assessment Assigned Application Support Administrator CAROLYNE Morales DPOA/Assigned Designee Name tony Cisneros Contact Information [phone] Advance Directives? Yes Advance Directives on File No History Provided By Patient,Family Member,Medical Record Prior Living Arrangements Assisted Living Comment [facility] Facility Name Admitted From: [facility] Willing to Return to Facility? [facility] assisted in Needs Assistance With Home Chores / Shopping DME Already Rented / Owned Cane Patient/Family Preference Home with Home Health Comment [facility] HH reviewing referral Comment Anisha Crespo [facility] needs to complete bedside assessment Discharge Plan Home with Home Health Transportation Arrangement family in POV Referrals Initiated Home Health Additional Comment [facility] HH reviewing If patient plan is home with home health Yes : Has signed face to face form been completed? SNF/HH Preference [facility] HH due to lack of PCP Whiteboard Updated in Patient Room with Yes name and ext. # of Application Support Administrator Review Status In Process Next Review Type Continued Stay Review
--- NOTE | 2024-01-13 12:47 | DI.ECHO.S_ITS ---
[place] [facility]---------+ [facility] +---------+ : : [address] : [address] [address] : : : : [phone] : : : : Phone: [phone]---------+ Echocardiogram Report + + :Name: MAKAYLA GIVENS Study Date: 01/14/2024 Height: 65 in : :[facility] ReadingLocation: Weight: 186 lb: : Gender: Female BSA: 1.9 m2 : :: 1940 Age: 83 yrs : :Reason For Study: DYSPNEA ON EXERTION : :Ordering Physician: CORKY, : :JESSE ADAMS Performed By: Shama Lucio : :Referring: JESSE FRIED : + + Interpretation Summary Left ventricular wall thickness is mildly increased. The ejection fraction is estimated to be 55-60%. Grade I diastolic dysfunction. The left atrium is moderately dilated. The right ventricle is normal in size and function. There is trace aortic regurgitation. Pulmonary artery pressures cannot be estimated because of the lack of a measurable TR jet velocity but the IVC suggests a CVP of around 3 mmHg. Procedure: A two-dimensional transthoracic echocardiogram with color flow and Doppler was performed. The study quality was technically adequate. There is no prior echocardiogram noted for this patient. The patient was in sinus rhythm with heart rates between 62-84 bpm during the exam. Left Ventricle: The left ventricle is normal in size. Left ventricular wall thickness is mildly increased. The ejection fraction is estimated to be 55- 60%. Diastolic parameters suggest a relaxation abnormality of the left ventricle, consistent with probable normal filling pressures. Right Ventricle: The right ventricle is normal in size and function. Atria: The left atrium is moderately dilated. Right atrial size is normal. There is no Doppler evidence for an interatrial shunt. Mitral Valve: There is mild mitral annular calcification. The mitral valve leaflets appear borderline thickened, but open well. There is trace mitral regurgitation. Aortic Valve: The aortic valve is mildly calcified. The peak aortic velocity is 2.5 m/sec. The aortic valve mean gradient is 12 mmHg. There is no hemodynamically significant valvular aortic stenosis. There is trace aortic regurgitation. Tricuspid Valve: The tricuspid valve is normal in structure and function. There is trace tricuspid regurgitation. Pulmonary artery pressures cannot be estimated because of the lack of a measurable TR jet velocity but the IVC suggests a CVP of around 3 mmHg. Pulmonic Valve: The pulmonic valve is not well seen, but is grossly normal. There is no pulmonic valvular regurgitation. Great Vessels: The aortic root is normal size. The dimensions of the ascending aorta are normal. The IVC is of normal diameter and collapses greater than 50% with a sniff. This suggests a low right atrial pressure of 3 mm Hg. Pericardium/ Pleura There is no pericardial effusion. There is no pleural effusion. MMode/2D Measurements & Calculations LVIDd: 4.5 cm LVOT diam: 1.9 cm LVIDs: 3.1 cm Ao root diam: 3.3 cm FS: 31.2 % asc Aorta Diam: 3.6 cm IVSd: 1.2 cm LVPWd: 1.0 cm LV zurita. diameter/BSA (cm/m^2): 2.3 LV sys. diameter/BSA (cm/m^2): 1.6 LA A2 area: 26.7 cm2 RA long axis: 5.3 cm LA A4 area: 25.6 cm2 RA area: 13.4 cm2 LA length (vol): 5.4 cm RA vol: 29.2 ml LA vol: 107.6 ml RA : 15.2 ml/m2 LA vol index: 56.1 ml/m2 IVC diam: 1.9 cm RVD1 (basal): 3.3 cm RVD2 (mid): 2.7 cm TAPSE: 1.8 cm Doppler Measurements & Calculations Ao V2 max: 249.0 cm/sec LVOT Max Francisco: 119.9 cm/sec Ao V2 mean: 158.6 cm/sec LV V1 max P.8 mmHg Ao max P.7 mmHg LV V1 VTI: 26.2 cm Ao mean P.8 mmHg JOSH(I,D): 1.5 cm2 Ao V2 VTI: 50.4 cm JOSH(V,D): 1.4 cm2 sev ratio: 0.52 JOSH indexed to BSA (cm^2/m^2): 0.79 MV E max francisco: 68.8 cm/sec TR max francisco: 238.3 cm/sec MV A max francisco: 127.6 cm/sec TR max P.7 mmHg MV E/A: 0.54 PA V2 max: 101.0 cm/sec Med Peak E' Francisco: 5.7 cm/sec PA V2 mean: 71.6 cm/sec E/E' med: 12.1 PA mean P.3 mmHg Lat Peak E' Francisco: 5.0 cm/sec PA pr(Accel): 31.0 mmHg E/E' lat: 13.8 E/e' average: 13.0 MV dec time: 0.23 sec SV(LVOT): 76.2 ml Reading Physician:08:56 AM
[2024-01-13 13:10] VITALS: BP 114/49; PULSE 67; RESP 16; TEMP 36.5; O2SAT 94
[2024-01-13] MEDS: TRIAMCINOLONE 0.1% CREAM 15 GM 1 APPLIC TOP ×2 (14:02→20:12)
[2024-01-13] MEDS: VANCOMYCIN 1,250 MG/250 ML PIGGYBACK 250 MG IV (14:04)
[2024-01-13] MEDS: LORazepam 0.5 MG TABLET PO (17:59)
[2024-01-13] MEDS: MELATONIN 3 MG TABLET PO (20:07)
[2024-01-13 21:00] VITALS: O2SAT 94
[2024-01-14 01:00] VITALS: O2SAT 94
[2024-01-14 05:00] VITALS: O2SAT 95
[2024-01-14 05:36] VITALS: BP 147/64; PULSE 72; RESP 19; TEMP 36.4; O2SAT 95
[2024-01-14 05:49] LABS: Add Manual Diff / Slide Review NO; Basophils Absolute Auto 0 /uL (0-100); Basophils Percent Auto 0.2 % (0-2); Eosinophils Absolute Auto 700 /uL (0-450); Hematocrit 34.3 % (36-46); Hemoglobin 11.6 g/dL (12.0-16.0); Lymphocytes Absolute Auto 600 /uL (1100-4500); Lymphocytes Percent Auto 5.5 % (25-40); Mean Corpuscular HGB Conc 33.8 % (30-36); Mean Corpuscular Hemoglobin 30.3 PG (26-34); Mean Corpuscular Volume 89.6 fL (80-100); Monocytes Absolute Auto 1000 /uL (0-900); Monocytes Percent Auto 9.3 % (3-14); Neutrophils Absolute Auto 8000 /uL (1500-7000); Platelet Count 225 X10^3/uL (150-400); Red Blood Cell Count 3.83 X10^6/uL (4.0-5.2); Red Cell Distribution Width 14.7 % (11.6-14.8); White Blood Cell Count 10.3 X10^3/uL (4.5-11.0)
[2024-01-14 06:00] LABS: BUN Creatinine Ratio 30.8 (6-22); Blood Urea Nitrogen 20 mg/dL (7-17); Carbon Dioxide 26 mmol/L (22-32); Chloride 110 mmol/L (98-107); Estimated Glomerular Filt Rate > 60 mL/min (>60); Glucose 103 mg/dL (80-110); HEMOLYSIS < 15 (0-50); Magnesium 2.2 mg/dL (1.6-2.3); Potassium 4.5 mmol/L (3.4-5.1); Sodium 138 mmol/L (137-145)
[2024-01-14 06:08] LABS: NT-proBNP (BNP-Adult 18+) 734 pg/mL (<450)
[2024-01-14 08:00] VITALS: BP 149/72; PULSE 75; RESP 20; TEMP 36.8; O2SAT 97
[2024-01-14 09:17] VITALS: BP 149/72
[2024-01-14] MEDS: ASPIRIN 81 MG CHEW TAB PO (09:17)
[2024-01-14] MEDS: ENALAPRIL 5 MG TABLET 30 MG PO (09:17)
[2024-01-14] MEDS: SPIRONOLACTONE 25 MG TABLET PO (09:18)
[2024-01-14] MEDS: DOCUSATE 100 MG CAPSULE PO (09:18)
[2024-01-14] MEDS: SERTRALINE 50 MG TABLET PO (09:18)
[2024-01-14] MEDS: DONEPEZIL 5 MG TABLET 10 MG PO (09:18)
[2024-01-14] MEDS: QUETIAPINE 25 MG TABLET 50 MG PO (09:18)
[2024-01-14] MEDS: FUROSEMIDE 40 MG TABLET PO (09:18)
[2024-01-14] MEDS: ENOXAPARIN 40 MG/0.4 ML SYRINGE SUBCUT (09:19)
[2024-01-14] MEDS: ACETAMINOPHEN 325 MG TABLET 975 MG PO (09:19)
[2024-01-14] MEDS: CLOTRIMAZOLE 1% CRM 30 GM 1 APPLIC TOP (09:19)
[2024-01-14] MEDS: TRIAMCINOLONE 0.1% CREAM 15 GM 1 APPLIC TOP (09:20)
--- NOTE | 2024-01-14 09:31 | P.DS_ITS ---
History of Present Illness History of Present Illness Date Patient Seen: 01/14/24 Time Patient Seen: 09:31 Chief complaint: glf Narrative: Per admitting provider, Pt is an 83 yo female with history of dementia, depression, urinary incontinence, chronic LE lymphedema, TIA, severe hypertension, osteoporosis transported to ED by EMS post ground level fall outside of [facility]. Pt had moved in to [facility] just yesterday from independent living [facility] in [facility]. She had apparently walked a short distance outside and had unwitnessed fall. Found by passerby and taken inside where facility staff called EMS. Pt was found to have 4 left sided rib fractures on CT. Also noted to have left orbital hematoma without fracture on facial CT. Head and spine CT report showed no trauma or bleed. Pt has impaired short-term memory and not clear if she recalls fall this morning. She has fallen at least a couple of times in the past and hospitalized for traumatic shoulder fracture. Patient has history of chronic lymphedena of LEs. Her niece (POA) states apearance of legs has worsened although time frame is unclear. On med list it is noted she is on daily doxycycline, per med rec 30 tabs prescribed on 12/18. Pt denies pain in the legs. Denies fever, cough, other resp symptoms, hx of heart failure. Discharge Providers Provider Date of admission: 01/12/24 14:22 Discharge Date: 01/14/24 Consults: 01/12/24 16:18 Consult to Wound Care Routine Comment: Consulting Provider: [facility] 01/12/24 16:50 Consult to Occupational Therapy Evaluate & Treat Comment: Physician Instructions: Evaluate and treat Consult to Physical Therapy Evaluate & Treat Comment: Physician Instructions: Evaluate and Treat 01/13/24 11:39 Consult to Home Health Routine Comment: Reason For Exam: RN/PT/OT/DELIVERY DIRECTOR Discharge provider: Raulito Vazquez DO Summary Hospital Course Discharge Diagnosis: 1. Ground level fall with multiple rib fractures and acute respiratory failure with hypoxia. 2. Left orbital hematoma without fracture 3. Chronic bilateral LE lymphedema with possible cellulitis 4. Hypertension 5. Dementia 6. History of depression 7. Insomnia Hospital Course: 83 F admitted after a fall with multiple L rib fractures and a left orbital hematoma. Patient has chronic bilateral lymphedema, mild erythema and was started on vancomycin for possible cellulitis but with minimal change in symptoms. She was discharged with another 5 days of doxycycline based on multiple drug allergies for possible cellulitis. When working with therapies, patient was short of breath mildly but hypoxic to the low 80s. Echocardiogram showed normal EF with some diastolic dysfunction. No acute heart failure is likely based on evaluation. More likely etiology is due to atelectasis. The following day she was no longer hypoxic with ambulation. Pain was controlled with tylenol. She was deemend appropriate after therapy evaluation to return to [facility]. Patient still needs to establish care with PCP locally, some of her chronic medications were refilled, but limited benzodiazepine refill was sent at discharge. Time Spent with Patient Time spent: Greater than 30 minutes Exam Vital Signs (past 8 hours): - 01/14/24 05:00 01/14/24 05:36 01/14/24 08:00 Temperature 97.6 F 98.2 F Pulse Rate 72 75 Respiratory Rate 19 20 Blood Pressure 147/64 H 149/72 H Pulse Oximetry 95 95 97 Oxygen Delivery Method Room Air Oxygen Flow Rate 0 0 0 01/14/24 09:17 Temperature Pulse Rate Respiratory Rate Blood Pressure 149/72 H Pulse Oximetry Oxygen Delivery Method Oxygen Flow Rate Oxygen Delivery Method Room Air Oxygen Flow Rate 0 Narrative Exam Narrative: General: alert, pleasant, calm HEENT: left periorbital edema, no facial deformity, rajni clear Lungs: clear Heart: regular, no murmur Abd: soft, nt Ext: bilateral 2-3+ weeping edema below knees, shallow stasis ulcerations in bilat LEs, sig erythema shins/calves above ankles but not warm or tender. patchy scaling of inflamed skin areas, onychomycosis Skin: additionally has superficial excoriation, weeping and erythema below left breast Neuro: alert, oriented to person and hospital, cooperative Objective Labs 01/14/24 05:30 01/14/24 05:30 Labs: Laboratory Results - last 24 hr 01/14/24 05:30 WBC 10.3 RBC 3.83 L Hgb 11.6 L Hct 34.3 L MCV 89.6 MCH 30.3 MCHC 33.8 RDW 14.7 Plt Count 225 Neut % (Auto) 78.0 H Lymph % (Auto) 5.5 L [place] % (Auto) 9.3 Eos % (Auto) 7.0 H Baso % (Auto) 0.2 Neut # (Auto) 8000 H Lymph # (Auto) 600 L [place] # (Auto) 1000 H Eos # (Auto) 700 H Baso # (Auto) 0 Sodium 138 Potassium 4.5 Chloride 110 H Carbon Dioxide 26 BUN 20 H Creatinine 0.65 Estimated GFR > 60 BUN/Creatinine Ratio 30.8 H Glucose 103 Calcium 9.0 Magnesium 2.2 NT-Pro-B Natriuret Pep 734 H [facility] Medical History (Updated 01/12/24 @ 15:23 by Carole Bui RN) Age-related cataract, morgagnian type, bilateral Alzheimer disease Urinary incontinence Rash and other nonspecific skin eruption Cellulitis of left lower limb Transient ischemic attack Osteoporosis Primary hypertension Personal history of malignant neoplasm of ovary Unspecified dementia, unspecified severity, without behavioral disturbance, psychotic disturbance, mood disturbance, and anxiety Unspecified dementia, mild, without behavioral disturbance, psychotic disturbance, mood disturbance, and anxiety Depression, unspecified Unspecified cataract Localized edema Social History household members: caregiver Smoking Status: Never smoker alcohol intake: former Discharge Plan Discharge Plan Patient Disposition: Home Provider Discharge Comment: You were admitted to the hospital after a fall. You had some rib fractures. Oxygen was a bit low moving around but this improved. Ultrasound of your heart was okay, no medication changes needed. Legs appear okay, you may have cellulitis of your legs but continue doxycylcline therapy for another 5 days after discharge. Recommend primary care follow up for lymphedema (swelling in your legs), though based on ultrasound results I am going to increase your furosemide dosing slightly. Discharge orders & Medications Prescriptions: Continued melatonin 3 mg Tablet 3 mg PO BEDTIME PRN (Reason: Insomnia) triamcinolone acetonide 0.1 % Cream 1 applic TOPICAL BID spironolactone 25 mg Tablet 25 mg PO DAILY aspirin 81 mg Tablet,Chewable 81 mg PO DAILY sertraline 50 mg Tablet 50 mg PO DAILY quetiapine 50 mg Tablet 50 mg PO BID cholecalciferol (vitamin D3) [Vitamin D3] 25 mcg (1,000 unit) Tablet 25 mcg PO DAILY enalapril maleate 20 mg Tablet 30 mg PO DAILY donepezil 10 mg Tablet 10 mg PO DAILY magnesium hydroxide [Milk of Magnesia] 400 mg/5 mL Suspension 400 mg PO DAILY PRN (Reason: Constipation) multivitamin with minerals Tablet 1 tab PO DAILY cranberry 500 mg Capsule 1,000 mg PO DAILY Rx Instructions: administer with meals acetaminophen 325 mg Capsule 650 mg PO Q4H PRN (Reason: pain/fever) nebivolol 10 mg Tablet 10 mg PO DAILY [employer] 10 billion cell -200 mg Capsule 1 cap PO DAILY doxycycline hyclate 100 mg Capsule 100 mg PO DAILY 5 Days Qty: 10 0RF lorazepam 0.5 mg Tablet 0.5 mg PO DAILY PRN (Reason: Anxiety) 7 Days Qty: 7 0RF Changed furosemide 40 mg Tablet 60 mg PO DAILY 30 Days Qty: 45 0RF Diet/Activity/Treatments Diet: Diet as Tolerated and Low-sodium Activity: As tolerated, no restrictions Visit Report/Discharge Packet Instructions: DI for Rib Fracture Stand Alone Forms: Patient Portal/API, Stroke Signs & Symptoms Discharge Data Attending Provider: Elvis Ballard Admit Date/Time: 01/12/24 14:22
--- NOTE | 2024-01-14 10:48 | CM.DPNOTE ---
DC Note Discharge order completed. Reviewed discharge plan with patient's niece Amelia P [phone]; family plans to transport patient home to [facility]. Placed call to Shaista Mars [phone] RN at [facility]; Shaista confirms patient okay to return, requests faxed med list. Faxed signed med list to [facility] at F [phone]. Updated RN. ELNEA Chang, updating [facility]. Plan: Discharge back to [facility], family to transport, [facility] RN/OT/PT/CASING WORKER JW
--- NOTE | 2024-01-23 07:58 | PC.NURSE ---
Late Entry: Vancomycin infusion initiated 01/11 at 1422 complete at 1623.
== END 2024-01-14 12:10 | disposition home or self-care (01) ==
LOC: ED 10:56 → AC 14:30
PROVIDERS: Internal Medicine; Admitting Provider Internal Medicine; Emergency Provider Emergency Medicine; Referring Provider Emergency Medicine; Visit Provider Internal Medicine
DX: S00.12XA Contusion of left eyelid and periocular area, initial encounter (principal); J96.01 Acute respiratory failure with hypoxia; W18.30XA Fall on same level, unspecified, initial encounter; S22.42XA Multiple fractures of ribs, left side, initial encounter for closed fracture; Y92.098 Other place in other non-institutional residence as the place of occurrence of the external cause; I89.0 Lymphedema, not elsewhere classified; I10 Essential (primary) hypertension; F03.90 Unspecified dementia, unspecified severity, without behavioral disturbance, psychotic disturbance, mood disturbance, and anxiety; G47.00 Insomnia, unspecified
CPT/HCPCS: 36415; 70450; 70486; 71101; 71250; 72125; 80048; 80053; 83735; 83880; 85025; 93306; 96365; 96366; 96367; 96372; 97161; 97167; 97530; 97535; 99285; 99291; G0378; G0390; J0696; J1650

== ENCOUNTER → 2024-12-15 14:21 | Outpatient (CLI) | payer MEDICARE, SELFPAY ==
[2024-07-15 17:31] VITALS: BMI 30.9
[2024-12-16 16:08] LABS: Influenza A - CEPHEID Flu A NEGATIVE (NEGATIVE); Influenza B - CEPHEID Flu B NEGATIVE (NEGATIVE); Respiratory Syncytial Virus Negative (Negative)
[2024-12-16 16:11] LABS: COVID-19 CEPHEID 4-PLEX PCR Negative (Negative)
== END ==
PROVIDERS: PCP Family Medicine; Visit Provider Family Medicine
DX: J11.1 Influenza due to unidentified influenza virus with other respiratory manifestations (principal); R05.9 Cough, unspecified
CPT/HCPCS: 0241U

== ENCOUNTER 2025-03-15 11:01 | Emergency (ER) | payer MEDICARE, SELFPAY ==
[2024-07-15 17:31] VITALS: BMI 30.9
[2025-03-15 11:11] VITALS: BP 150/74; PULSE 93; RESP 17; TEMP 36.9; O2SAT 96; BMI 31.1
[2025-03-15 11:29] VITALS: PULSE 85; O2SAT 97
[2025-03-15 11:30] VITALS: PULSE 80; O2SAT 98
[2025-03-15 11:31] VITALS: BP 145/64; PULSE 85; O2SAT 98
[2025-03-15] MEDS: HALOPERIDOL 5 MG/ML VIAL 2.5 MG IM (12:02)
--- NOTE | 2025-03-15 12:23 | PC.NURSE ---
Patient up in room requesting to leave to go back to facility. Reminded patient of the plan to obtain blood work and urine to rule out infection. Patient states I don't need that I just want to get back home, there are doctors there to take care of me. But if that is what you need to do then get it over with. Just that means poke poke poke for me Patient agreeable to sitting down and waiting for lab.
[2025-03-15 12:41] LABS: Add Manual Diff / Slide Review NO; Basophils Absolute Auto 0 /uL (0-100); Basophils Percent Auto 0.1 % (0-2); Eosinophils Absolute Auto 0 /uL (0-450); Hematocrit 40.2 % (36-46); Hemoglobin 13.4 g/dL (12.0-16.0); Lymphocytes Absolute Auto 200 /uL (1100-4500); Lymphocytes Percent Auto 1.3 % (25-40); Mean Corpuscular HGB Conc 33.3 % (30-36); Mean Corpuscular Hemoglobin 29.9 PG (26-34); Monocytes Absolute Auto 300 /uL (0-900); Monocytes Percent Auto 1.9 % (3-14); Neutrophils Absolute Auto 13100 /uL (1500-7000); Neutrophils Percent Auto 96.7 % (50-75); Platelet Count 300 X10^3/uL (150-400); Red Blood Cell Count 4.46 X10^6/uL (4.0-5.2); Red Cell Distribution Width 14.2 % (11.6-14.8); White Blood Cell Count 13.5 X10^3/uL (4.5-11.0)
[2025-03-15 12:52] LABS: Alanine Aminotransferase 23 IU/L (<35); Albumin 4.8 g/dL (3.5-5.0); Albumin Globulin Ratio 1.3 (1.0-2.8); Alkaline Phosphatase 87 U/L (38-126); Aspartate Aminotransferase 34 IU/L (14-36); BUN Creatinine Ratio 36.5 (6-22); Bilirubin Total 0.7 mg/dL (0.2-1.3); Blood Urea Nitrogen 42 mg/dL (7-17); Calcium 9.7 mg/dL (8.4-10.2); Carbon Dioxide 25 mmol/L (22-32); Chloride 104 mmol/L (98-107); Estimated Glomerular Filt Rate 46 mL/min (>60); Globulin 3.7 g/dL (1.7-4.1); Glucose 122 mg/dL (70-99); HEMOLYSIS < 15 (0-50); Potassium 5.1 mmol/L (3.4-5.1); Sodium 138 mmol/L (137-145); Total Protein 8.5 g/dL (6.3-8.2)
[2025-03-15 13:33] LABS: Appearance Urine UA CLEAR; Bilirubin Urine UA NEGATIVE (NEGATIVE); Color Urine UA YELLOW; Glucose Urine UA NEGATIVE (Negative); Ketones Urine UA NEGATIVE (NEGATIVE); Leukocyte Esterase Urine UA TRACE (NEGATIVE); Nitrite Urine UA NEGATIVE (Negative); Occult Blood Urine UA NEGATIVE (Negative); Protein Urine UA NEGATIVE (Negative); Urobilinogen Urine UA 0.2 E.U./dL (0.2)
[2025-03-15 13:34] LABS: Urine Volume 10mL (spun); pH Urine UA 6.5 (4.5-8.0)
--- NOTE | 2025-03-15 13:36 | PC.NURSE ---
Patient up at doorway trying to leave I am going to go home redirected back to chair in room, discussed waiting on labs and urine as well as need to facilitate a safe ride home.
[2025-03-15 13:37] LABS: Bacteria Urine None Seen; Culture Indicated Urine Cult Not Indicated; RBC Urine None Seen (0-5/HPF); Squamous Epithelial Cell Urine None Seen (0-5/HPF); WBC Urine None Seen (0-5/HPF)
--- NOTE | 2025-03-15 14:01 | PC.NURSE ---
Patient sent to ED by ZAIDA when staff at [facility] noted vomit and feces on the cortes and floors of her suite. DPOA concerned about patient d/t agitation that she has an infection, cellulitis or UTI. Patient given 2.5mg haldol for agitation, tolerated well and allowed for blood draw and gave us a urine sample. Patient with alzheimers requiring redirection frequently but has not been violent with staff.
--- NOTE | 2025-03-15 14:21 | ED_ITS ---
HPI - Nausea/Vomiting/Diarrhea General Chief complaint: Nausea/Vomiting/Diarrhea Stated complaint: diarrhea Time Seen by Provider: 03/15/25 11:45 Source: patient and EMS Mode of arrival: EMS History of Present Illness HPI Narrative: 84-year-old female brought from the counter and [facility] for vomiting and diarrhea. Reportedly it occurred overnight. has a history of dementia. In the emergency department, she is not reporting abdominal pain nausea shortness of breath or other acute symptoms. She is difficult to keep in the room and not always redirectable. Insists thshe wants to go home. Related Data Home Medications Medication Instructions Recorded Confirmed Lactobacillus rhamnosus GG 10 1 cap PO DAILY 01/12/24 01/15/25 billion cell-inulin 200 mg capsule ([facility] [email or web address]) acetaminophen 325 mg capsule 650 mg PO Q4H PRN pain/fever 01/12/24 01/15/25 aspirin 81 mg chewable tablet 81 mg PO DAILY 01/12/24 01/15/25 cholecalciferol (vitamin D3) 25 25 mcg PO DAILY 01/12/24 01/15/25 mcg (1,000 unit) tablet (Vitamin D3) cranberry 500 mg capsule 1,000 mg PO DAILY 01/12/24 01/15/25 donepezil 10 mg tablet 10 mg PO DAILY 01/12/24 01/15/25 enalapril maleate 20 mg tablet 30 mg PO DAILY 01/12/24 01/15/25 magnesium hydroxide 400 mg/5 mL 400 mg PO DAILY PRN Constipation 01/12/24 01/15/25 oral suspension (Milk of Magnesia) melatonin 3 mg tablet 3 mg PO BEDTIME PRN Insomnia 01/12/24 01/15/25 multivitamin with minerals 1 tab PO DAILY 01/12/24 01/15/25 nebivolol 10 mg tablet 10 mg PO DAILY 01/12/24 01/15/25 sertraline 50 mg tablet 50 mg PO DAILY 01/12/24 01/15/25 spironolactone 25 mg tablet 25 mg PO DAILY 01/12/24 01/15/25 Previous Rx's Medication Instructions Recorded triamcinolone acetonide 0.1 % 1 applic topical BID #80 grams 02/07/24 topical cream nystatin 100,000 unit/gram topical 1 applic topical DAILY #30 grams 03/27/24 ointment clotrimazole 1 % topical cream 1 applic topical BID #30 grams 04/08/24 lorazepam 0.5 mg tablet 0.25 mg (1/2 x 0.5 mg) PO DAILY 04/20/24 PRN Anxiety #30 tabs quetiapine 25 mg tablet 25 mg PO QAM #90 tabs 09/17/24 quetiapine 25 mg tablet 50 mg (2 x 25 mg) PO BID #90 tabs 10/09/24 memantine 5 mg tablet 5 mg PO QAM #30 tabs 10/12/24 torsemide 40 mg tablet 40 mg PO DAILY #30 tabs 10/29/24 azithromycin 250 mg tablet See Rx Instructions PO .COMPLEX #6 12/15/24 tabs bumetanide 2 mg tablet 2 mg PO DAILY #30 tabs 12/28/24 Allergies Allergy/AdvReac Type Severity Reaction Status Date / Time clavulanic acid Allergy Mild Verified 03/15/25 11:11 [From Augmentin] amoxicillin Allergy Unknown Verified 03/15/25 11:11 cephalexin Allergy Unknown Verified 03/15/25 11:11 Sulfa (Sulfonamide Allergy Unknown Verified 03/15/25 11:11 Antibiotics) Patient History Medical History (Updated 03/15/25 @ 14:20 by Luke Carrasco MD) Bilateral lower extremity edema Age-related cataract, morgagnian type, bilateral Alzheimer disease Urinary incontinence Rash and other nonspecific skin eruption Cellulitis of left lower limb Transient ischemic attack Osteoporosis Primary hypertension Personal history of malignant neoplasm of ovary Unspecified dementia, unspecified severity, without behavioral disturbance, psychotic disturbance, mood disturbance, and anxiety Unspecified dementia, mild, without behavioral disturbance, psychotic disturbance, mood disturbance, and anxiety Depression, unspecified Unspecified cataract Localized edema Social History household members: caregiver alcohol intake: former alcohol intake frequency: 0-2 drinks per day Exam Narrative Exam Narrative: Elderly female who is not oriented appears to be in no distress intermittently agitated Initial Vital Signs Initial Vital Signs: Vital Signs Temperature 98.4 F 03/15/25 11:11 Pulse Rate 93 H 03/15/25 11:11 Respiratory Rate 17 03/15/25 11:11 Blood Pressure 150/74 H 03/15/25 11:11 Pulse Oximetry 96 03/15/25 11:11 Oxygen Delivery Method Room Air 03/15/25 11:11 vitals are reviewed HENMT HENMT Other: normocephalic and atraumatic moist oral mucosa Neck Other: supple Resp Other: normal respiratory effort lungs are clear Cardio Other: normal rate regular rhythm and rate no murmur GI Other: normal bowel sounds soft nontender no CVAT Skin Other: warm and dry Neuro Other: ambulatory using a walker. Confused and not oriented other than to name this is baseline per records Course Orders Ordered: ED Orders 03/15/25 12:32 CBC Auto Diff [Complete Blood Count AUTO DIFF] Stat CMP [Comprehensive Metabolic Panel] Stat 03/15/25 13:26 Urinalysis and Microscopic Stat Urine Culture Stat Discontinued Medications Haloperidol (Haloperidol 5 Mg/Ml Vial) 2.5 mg IM NOW ONE Stop: 03/15/25 11:49 Last Admin: 03/15/25 12:02 Dose: 2.5 mg Documented By: PRESTON Reevaluation(s) Reevaluation #1: patient has had no vomiting or diarrhea throughout her stay in the emergency department. Vital Signs Vital signs: Vital Signs - 8 hr 03/15/25 11:11 Temperature 98.4 F Pulse Rate 93 H Respiratory Rate 17 Blood Pressure 150/74 H Pulse Oximetry 96 Oxygen Delivery Method Room Air MDM - Nausea/Vomiting/Diarrhea Lab Data Lab results narrative: Leukocytosis is noted, and is nonspecific. Labs are otherwise reassuring 03/15/25 12:32 03/15/25 12:32 Labs: Lab Results 03/15/25 03/15/25 Range/Units 12:32 13:26 WBC 13.5 H (4.5-11.0) X10^3/uL RBC 4.46 (4.0-5.2) X10^6/uL Hgb 13.4 (12.0-16.0) g/dL Hct 40.2 (36-46) % MCV 90.0 (80-100) fL MCH 29.9 (26-34) PG MCHC 33.3 (30-36) % RDW 14.2 (11.6-14.8) % Plt Count 300 (150-400) X10^3/uL Neut % (Auto) 96.7 H (50-75) % Lymph % (Auto) 1.3 L (25-40) % [place] % (Auto) 1.9 L (3-14) % Eos % (Auto) 0.0 L (2-4) % Baso % (Auto) 0.1 (0-2) % Neut # (Auto) 55470 H (0452-2046) /uL Lymph # (Auto) 200 L (2499-8875) /uL [place] # (Auto) 300 (0-900) /uL Eos # (Auto) 0 (0-450) /uL Baso # (Auto) 0 (0-100) /uL Sodium 138 (137-145) mmol/L Potassium 5.1 (3.4-5.1) mmol/L Chloride 104 (98-107) mmol/L Carbon Dioxide 25 (22-32) mmol/L BUN 42 H (7-17) mg/dL Creatinine 1.15 H (0.52-1.04) mg/dL Estimated GFR 46 L (>60) mL/min BUN/Creatinine Ratio 36.5 H (6-22) Glucose 122 H (70-99) mg/dL Calcium 9.7 (8.4-10.2) mg/dL Total Bilirubin 0.7 (0.2-1.3) mg/dL AST 34 (14-36) IU/L ALT 23 (<35) IU/L Alkaline Phosphatase 87 (38-126) U/L Total Protein 8.5 H (6.3-8.2) g/dL Albumin 4.8 (3.5-5.0) g/dL Globulin 3.7 (1.7-4.1) g/dL Albumin/Globulin Ratio 1.3 (1.0-2.8) Urine Color Yellow Urine Appearance Clear Urine pH 6.5 (4.5-8.0) Ur Specific [place] 1.010 (1.000-1.035) Urine Protein Negative (Negative) Urine Glucose (UA) Negative (Negative) g/dL Urine Ketones Negative (NEGATIVE) Urine Occult Blood Negative (Negative) Urine Nitrate Negative (Negative) Urine Bilirubin Negative (NEGATIVE) Urine Urobilinogen 0.2 (0.2) E.U./dL Ur Leukocyte Esterase Trace H (NEGATIVE) Urine RBC None seen (0-5/HPF) Urine WBC None seen (0-5/HPF) Ur Squamous Epith Cells None seen (0-5/HPF) Urine Bacteria None seen (None) Ur Culture Indicated? Cult not indicated Vol Urine Centrifuged 10ml (spun) MDM Narrative Medical decision making narrative: 84-year-old female with advanced dementia at baseline presenting with history of nausea and vomiting and diarrhea. Differential diagnosis included gastroenteritis, pancreatitis or cholecystitis, urinary tract infection, bowel obstruction. Workup is diffusely reassuring and she is not having continued symptoms here in the emergency department. Her mental status is baseline. We will discharge her back to her previous care setting. Discharge Plan Departure Patient Disposition: Home Clinical Impression: Vomiting and diarrhea, Dementia with behavioral disturbance Activity Restrictions/Additional Instructions: emergency department evaluation today does not show a serious cause for vomiting and diarrhea and during her stay in the emergency department vomiting and diarrhea was not observed. Workup is otherwise reassuring without evidence of urinary tract infection. Patient can be discharged back to previous care setting to resume previous care. Prescriptions: No Action triamcinolone acetonide 0.1 % cream 1 applic topical BID Qty: 80 11RF nystatin 100,000 unit/gram ointment 1 applic topical DAILY Qty: 30 5RF Rx Instructions: apply to effected area daily lorazepam 0.5 mg tablet 0.25 mg PO DAILY PRN (Reason: Anxiety) Qty: 30 0RF quetiapine 25 mg tablet 25 mg PO QAM Qty: 90 3RF Rx Instructions: Stop 75mg dose QAM; switch to 25mg QAM torsemide 40 mg tablet 40 mg PO DAILY Qty: 30 0RF bumetanide 2 mg tablet 2 mg PO DAILY Qty: 30 0RF Rx Instructions: Hold the Lasix and start the Bumetanide 2 mg daily. clotrimazole 1 % cream 1 applic topical BID Qty: 30 0RF azithromycin 250 mg tablet See Rx Instructions PO .COMPLEX Qty: 6 0RF Rx Instructions: For 250 mg dose pack: take 500 mg today (day 1), then 250 mg for 4 days (days 2-5) PO quetiapine 25 mg tablet 50 mg PO BID Qty: 90 3RF memantine 5 mg tablet 5 mg PO QAM Qty: 30 3RF melatonin 3 mg Tablet 3 mg PO BEDTIME PRN (Reason: Insomnia) spironolactone 25 mg Tablet 25 mg PO DAILY aspirin 81 mg Tablet,Chewable 81 mg PO DAILY sertraline 50 mg Tablet 50 mg PO DAILY cholecalciferol (vitamin D3) [Vitamin D3] 25 mcg (1,000 unit) Tablet 25 mcg PO DAILY enalapril maleate 20 mg Tablet 30 mg PO DAILY donepezil 10 mg Tablet 10 mg PO DAILY magnesium hydroxide [Milk of Magnesia] 400 mg/5 mL Suspension 400 mg PO DAILY PRN (Reason: Constipation) multivitamin with minerals Tablet 1 tab PO DAILY cranberry 500 mg Capsule 1,000 mg PO DAILY Rx Instructions: administer with meals acetaminophen 325 mg Capsule 650 mg PO Q4H PRN (Reason: pain/fever) nebivolol 10 mg Tablet 10 mg PO DAILY [facility] 10 billion cell -200 mg Capsule 1 cap PO DAILY Referrals: Alyce Mann DO [Primary Care Provider] - Stand Alone Forms: Patient Portal/API/Survey
--- NOTE | 2025-03-15 14:53 | DI.RAD.S_ITS ---
PROCEDURE: XR CHEST 1V INDICATIONS: leukocytosis TECHNIQUE: One view of the chest was acquired. COMPARISON: None. FINDINGS: Surgical changes and devices: None. Lungs and pleura: Lungs are clear. No pleural effusions or pneumothorax. Mediastinum: Mediastinal contours appear normal. Heart size is normal. Bones and chest wall: No suspicious bony lesions. Overlying soft tissues appear unremarkable. IMPRESSION: No acute cardiopulmonary abnormality is seen. Dictated by: Rad Sheridan M.D. on 03/15/2025 at 15:22 Approved by: Rad Sheridan M.D. on 03/15/2025 at 15:22
--- NOTE | 2025-03-15 15:26 | ED.NAVMDI ---
HPI - Nausea/Vomiting/Diarrhea General Chief complaint: Nausea/Vomiting/Diarrhea Stated complaint: diarrhea Time Seen by Provider: 03/15/25 11:45 Source: patient and EMS Mode of arrival: EMS History of Present Illness HPI Narrative: this is an 84-year-old female with a history of ulcerative dementia presenting with reports of vomiting and diarrhea last night. She arrives by EMS, comes from [facility]. Patient at baseline has dementia, and apparently has a history of behavioral disturbances with infections. There was concern for urinary tract infection. Patient is not really able to assist much with history beyond that, had a discussion with her healthcare [id number] who insists that her behavior today is different than baseline and who is very concerned about a possible infection. Related Data Home Medications Medication Instructions Recorded Confirmed Lactobacillus rhamnosus GG 10 1 cap PO DAILY 01/12/24 01/15/25 billion cell-inulin 200 mg capsule ([facility]) acetaminophen 325 mg capsule 650 mg PO Q4H PRN pain/fever 01/12/24 01/15/25 aspirin 81 mg chewable tablet 81 mg PO DAILY 01/12/24 01/15/25 cholecalciferol (vitamin D3) 25 25 mcg PO DAILY 01/12/24 01/15/25 mcg (1,000 unit) tablet (Vitamin D3) cranberry 500 mg capsule 1,000 mg PO DAILY 01/12/24 01/15/25 donepezil 10 mg tablet 10 mg PO DAILY 01/12/24 01/15/25 enalapril maleate 20 mg tablet 30 mg PO DAILY 01/12/24 01/15/25 magnesium hydroxide 400 mg/5 mL 400 mg PO DAILY PRN Constipation 01/12/24 01/15/25 oral suspension (Milk of Magnesia) melatonin 3 mg tablet 3 mg PO BEDTIME PRN Insomnia 01/12/24 01/15/25 multivitamin with minerals 1 tab PO DAILY 01/12/24 01/15/25 nebivolol 10 mg tablet 10 mg PO DAILY 01/12/24 01/15/25 sertraline 50 mg tablet 50 mg PO DAILY 01/12/24 01/15/25 spironolactone 25 mg tablet 25 mg PO DAILY 01/12/24 01/15/25 Previous Rx's Medication Instructions Recorded triamcinolone acetonide 0.1 % 1 applic topical BID #80 grams 02/07/24 topical cream nystatin 100,000 unit/gram topical 1 applic topical DAILY #30 grams 03/27/24 ointment clotrimazole 1 % topical cream 1 applic topical BID #30 grams 04/08/24 lorazepam 0.5 mg tablet 0.25 mg (1/2 x 0.5 mg) PO DAILY 04/20/24 PRN Anxiety #30 tabs quetiapine 25 mg tablet 25 mg PO QAM #90 tabs 09/17/24 quetiapine 25 mg tablet 50 mg (2 x 25 mg) PO BID #90 tabs 10/09/24 memantine 5 mg tablet 5 mg PO QAM #30 tabs 10/12/24 torsemide 40 mg tablet 40 mg PO DAILY #30 tabs 10/29/24 azithromycin 250 mg tablet See Rx Instructions PO .COMPLEX #6 12/15/24 tabs bumetanide 2 mg tablet 2 mg PO DAILY #30 tabs 12/28/24 sulfamethoxazole 800 1 tab PO BID #14 tabs 03/15/25 mg-trimethoprim 160 mg tablet (Bactrim DS) Allergies Allergy/AdvReac Type Severity Reaction Status Date / Time clavulanic acid Allergy Mild Verified 03/15/25 11:11 [From Augmentin] amoxicillin Allergy Unknown Verified 03/15/25 11:11 cephalexin Allergy Unknown Verified 03/15/25 11:11 Sulfa (Sulfonamide Allergy Unknown Verified 03/15/25 11:11 Antibiotics) Patient History Medical History (Updated 03/15/25 @ 18:56 by Luke Carrasco MD) Bilateral lower extremity edema Age-related cataract, morgagnian type, bilateral Alzheimer disease Urinary incontinence Rash and other nonspecific skin eruption Cellulitis of left lower limb Transient ischemic attack Osteoporosis Primary hypertension Personal history of malignant neoplasm of ovary Unspecified dementia, unspecified severity, without behavioral disturbance, psychotic disturbance, mood disturbance, and anxiety Unspecified dementia, mild, without behavioral disturbance, psychotic disturbance, mood disturbance, and anxiety Depression, unspecified Unspecified cataract Localized edema Social History household members: caregiver alcohol intake: former alcohol intake frequency: 0-2 drinks per day Exam Narrative Exam Narrative: Elderly female, she seemed confused is difficult to redirect her to stay in her room. Initial Vital Signs Initial Vital Signs: Vital Signs Temperature 98.4 F 03/15/25 11:11 Pulse Rate 93 H 03/15/25 11:11 Respiratory Rate 17 03/15/25 11:11 Blood Pressure 150/74 H 03/15/25 11:11 Pulse Oximetry 96 03/15/25 11:11 Oxygen Delivery Method Room Air 03/15/25 11:11 Vital signs are reviewed [facility] Other: normocephalic and atraumatic Neck Other: neck is supple Resp Other: lungs are clear Cardio Other: regular rhythm rate no murmur or gallop GI Other: normal bowel sounds soft and nontender Skin Other: skin is warm and dry Neuro Other: no focal neurologic deficits, confused as above. Speech is fluent Extrem Other: has chronic venous stasis changes bilaterally. Left side is somewhat tender and little 1 was in the other side there is no lymphangitic streaking Course Orders Ordered: ED Orders 03/15/25 12:32 CBC Auto Diff [Complete Blood Count AUTO DIFF] Stat CMP [Comprehensive Metabolic Panel] Stat 03/15/25 13:26 Urinalysis and Microscopic Stat Urine Culture Stat 03/15/25 14:53 XR chest 1V Stat 03/15/25 15:31 CT head/brain wo con Stat 03/15/25 15:38 Consult to [facility] SPEC - [employer] Facilitator Stat Discontinued Medications Cephalexin HCl (Cephalexin 250 Mg Capsule) 500 mg PO NOW ONE Stop: 03/15/25 15:32 Last Admin: 03/15/25 15:50 Dose: 500 mg Documented By: LIZZ Donepezil HCl (Donepezil 5 Mg Tablet) 10 mg PO NOW ONE Stop: 03/15/25 18:46 Haloperidol (Haloperidol 5 Mg/Ml Vial) 2.5 mg IM NOW ONE Stop: 03/15/25 11:49 Last Admin: 03/15/25 12:02 Dose: 2.5 mg Documented By: PRESTON Haloperidol (Haloperidol 5 Mg/Ml Vial) 2.5 mg IM NOW ONE Stop: 03/15/25 17:10 Last Admin: 03/15/25 17:34 Dose: Not Given Documented By: LIZZ Lorazepam (Lorazepam 0.5 Mg Tablet) 1 mg PO NOW ONE Stop: 03/15/25 15:32 Last Admin: 03/15/25 15:50 Dose: 1 mg Documented By: LIZZ Quetiapine Fumarate (Quetiapine 25 Mg Tablet) 25 mg PO NOW ONE Stop: 03/15/25 18:45 Vital Signs Vital signs: Vital Signs - 8 hr 03/15/25 11:11 03/15/25 11:29 03/15/25 11:30 Temperature 98.4 F Pulse Rate 93 H 85 80 Respiratory Rate 17 Blood Pressure 150/74 H Pulse Oximetry 96 97 98 Oxygen Delivery Method Room Air 03/15/25 11:31 03/15/25 11:31 03/15/25 18:25 Temperature Pulse Rate 85 Respiratory Rate Blood Pressure 145/64 H 162/70 H Pulse Oximetry 98 Oxygen Delivery Method 03/15/25 18:25 Temperature Pulse Rate 83 Respiratory Rate Blood Pressure Pulse Oximetry 95 Oxygen Delivery Method MDM - Nausea/Vomiting/Diarrhea Lab Data Lab results narrative: Mild leukocytosis, CMP is reassuring. Urinalysis shows 0-5 white cells not likely consistent with the infection 03/15/25 12:32 03/15/25 12:32 Labs: Lab Results 03/15/25 03/15/25 Range/Units 12:32 13:26 WBC 13.5 H (4.5-11.0) X10^3/uL RBC 4.46 (4.0-5.2) X10^6/uL Hgb 13.4 (12.0-16.0) g/dL Hct 40.2 (36-46) % MCV 90.0 (80-100) fL MCH 29.9 (26-34) PG MCHC 33.3 (30-36) % RDW 14.2 (11.6-14.8) % Plt Count 300 (150-400) X10^3/uL Neut % (Auto) 96.7 H (50-75) % Lymph % (Auto) 1.3 L (25-40) % [place] % (Auto) 1.9 L (3-14) % Eos % (Auto) 0.0 L (2-4) % Baso % (Auto) 0.1 (0-2) % Neut # (Auto) 61136 H (0645-2429) /uL Lymph # (Auto) 200 L (5767-7638) /uL [place] # (Auto) 300 (0-900) /uL Eos # (Auto) 0 (0-450) /uL Baso # (Auto) 0 (0-100) /uL Sodium 138 (137-145) mmol/L Potassium 5.1 (3.4-5.1) mmol/L Chloride 104 (98-107) mmol/L Carbon Dioxide 25 (22-32) mmol/L BUN 42 H (7-17) mg/dL Creatinine 1.15 H (0.52-1.04) mg/dL Estimated GFR 46 L (>60) mL/min BUN/Creatinine Ratio 36.5 H (6-22) Glucose 122 H (70-99) mg/dL Calcium 9.7 (8.4-10.2) mg/dL Total Bilirubin 0.7 (0.2-1.3) mg/dL AST 34 (14-36) IU/L ALT 23 (<35) IU/L Alkaline Phosphatase 87 (38-126) U/L Total Protein 8.5 H (6.3-8.2) g/dL Albumin 4.8 (3.5-5.0) g/dL Globulin 3.7 (1.7-4.1) g/dL Albumin/Globulin Ratio 1.3 (1.0-2.8) Urine Color Yellow Urine Appearance Clear Urine pH 6.5 (4.5-8.0) Ur Specific [place] 1.010 (1.000-1.035) Urine Protein Negative (Negative) Urine Glucose (UA) Negative (Negative) g/dL Urine Ketones Negative (NEGATIVE) Urine Occult Blood Negative (Negative) Urine Nitrate Negative (Negative) Urine Bilirubin Negative (NEGATIVE) Urine Urobilinogen 0.2 (0.2) E.U./dL Ur Leukocyte Esterase Trace H (NEGATIVE) Urine RBC None seen (0-5/HPF) Urine WBC None seen (0-5/HPF) Ur Squamous Epith Cells None seen (0-5/HPF) Urine Bacteria None seen (None) Ur Culture Indicated? Cult not indicated Vol Urine Centrifuged 10ml (spun) Imaging Data CT scan - head: My Impression: independently reviewed CT head, no acute finding Radiologist's Impression: reviewed report, no acute Chest x-ray: My Impression: independently reviewed chest x-ray, no acute finding Radiologist's Impression: radiology report reviewed, no acute abnormality MDM Narrative Medical decision making narrative: 84-year-old female with a history of dementia presenting with concern for infection based on her behavior and reported history of vomiting and diarrhea. She has a mild leukocytosis, urinalysis does not really suggest infection, her abdomen was not tender on examination and she has not had any further vomiting or diarrhea here in the department. Other sources of infection were considered, also got a head CT for altered mental status, it did appear that she might have a cellulitis in her left leg and has chronic venous stasis changes there. She has not allergy to cephalexin although apparently got a dose here anyway and I sent her with a prescription for Bactrim. Discharge Plan Departure Patient Disposition: Home Clinical Impression: Vomiting and diarrhea, Dementia with behavioral disturbance, Cellulitis of left leg Activity Restrictions/Additional Instructions: emergency department evaluation today does not show a serious cause for vomiting and diarrhea and during her stay in the emergency department vomiting and diarrhea was not observed. Workup is otherwise reassuring without evidence of urinary tract infection. does appear that she may have a mild cellulitis involving her left leg. I have sent a prescription for Trimethoprim sulfa, 1st antibiotic dose was given today..Patient can be discharged back to previous care setting to resume previous care. Prescriptions: New sulfamethoxazole-trimethoprim [Bactrim DS] 800-160 mg tablet 1 tab PO BID Qty: 14 0RF No Action triamcinolone acetonide 0.1 % cream 1 applic topical BID Qty: 80 11RF nystatin 100,000 unit/gram ointment 1 applic topical DAILY Qty: 30 5RF Rx Instructions: apply to effected area daily lorazepam 0.5 mg tablet 0.25 mg PO DAILY PRN (Reason: Anxiety) Qty: 30 0RF quetiapine 25 mg tablet 25 mg PO QAM Qty: 90 3RF Rx Instructions: Stop 75mg dose QAM; switch to 25mg QAM torsemide 40 mg tablet 40 mg PO DAILY Qty: 30 0RF bumetanide 2 mg tablet 2 mg PO DAILY Qty: 30 0RF Rx Instructions: Hold the Lasix and start the Bumetanide 2 mg daily. clotrimazole 1 % cream 1 applic topical BID Qty: 30 0RF azithromycin 250 mg tablet See Rx Instructions PO .COMPLEX Qty: 6 0RF Rx Instructions: For 250 mg dose pack: take 500 mg today (day 1), then 250 mg for 4 days (days 2-5) PO quetiapine 25 mg tablet 50 mg PO BID Qty: 90 3RF memantine 5 mg tablet 5 mg PO QAM Qty: 30 3RF melatonin 3 mg Tablet 3 mg PO BEDTIME PRN (Reason: Insomnia) spironolactone 25 mg Tablet 25 mg PO DAILY aspirin 81 mg Tablet,Chewable 81 mg PO DAILY sertraline 50 mg Tablet 50 mg PO DAILY cholecalciferol (vitamin D3) [Vitamin D3] 25 mcg (1,000 unit) Tablet 25 mcg PO DAILY enalapril maleate 20 mg Tablet 30 mg PO DAILY donepezil 10 mg Tablet 10 mg PO DAILY magnesium hydroxide [Milk of Magnesia] 400 mg/5 mL Suspension 400 mg PO DAILY PRN (Reason: Constipation) multivitamin with minerals Tablet 1 tab PO DAILY cranberry 500 mg Capsule 1,000 mg PO DAILY Rx Instructions: administer with meals acetaminophen 325 mg Capsule 650 mg PO Q4H PRN (Reason: pain/fever) nebivolol 10 mg Tablet 10 mg PO DAILY [facility] 10 billion cell -200 mg Capsule 1 cap PO DAILY Referrals: Alyce Mann DO [Primary Care Provider] - Stand Alone Forms: Patient Portal/API/Survey
--- NOTE | 2025-03-15 15:31 | DI.CT.S_ITS ---
PROCEDURE: CT HEAD/BRAIN WO CON INDICATIONS: altered mental status TECHNIQUE: Noncontrast 4.5 mm thick angled axial sections acquired from the foramen magnum to the vertex, with coronal and sagittal reformats. For radiation dose reduction, the following was used: automated exposure control, adjustment of mA and/or kV according to patient size. COMPARISON: [facility], CT, CT HEAD/BRAIN WO CON, 01/12/2024, 11:12. FINDINGS: Image quality: Diagnostic CSF spaces: Basal cisterns are patent. Lateral ventricles are symmetric. Volume: Vascular calcifications. Periventricular white matter disease is commonly seen with chronic microangiopathy. Volume loss is present. These findings are moderate to severe Brain: No acute hemorrhage. No gross loss of ruff-white differentiation. Nonacute appearing basal ganglia mineralization bilaterally Craniofacial structures: Partially seen empty sella. No significant paranasal sinus opacity. IMPRESSION: No acute intracranial pathology. If there is high concern for parenchymal pathology, consider further evaluation with MRI. Dictated by: Tang Clark M.D. on 03/15/2025 at 17:21 Approved by: Tang Clark M.D. on 03/15/2025 at 17:22
[2025-03-15] MEDS: cephALEXin 250 MG CAPSULE 500 MG PO (15:50)
[2025-03-15] MEDS: LORazepam 0.5 MG TABLET 1 MG PO (15:50)
--- NOTE | 2025-03-15 17:20 | PC.NURSE ---
Patient consented without issue to CT scan, took her in a wheelchair and assisted her on the table. Returned to ED and patient allowed her brief to be changed and patient to be cleaned up. Some evidence of stool in brief but has not stool while in the ED nor while she was on the toilet after her CT scan. Patient in room with new warm blankets with no complaints and no new concerns noted.
--- NOTE | 2025-03-15 17:26 | PC.NURSE ---
Patient ate sandwhich half, egg salad, and has drank 1 full cup of water with no evidence of nausea or vomiting.
[2025-03-15 18:25] VITALS: BP 162/70; PULSE 83; O2SAT 95
--- NOTE | 2025-03-15 19:24 | CM.DANOTE ---
ED FINISH MACHINE TENDER Assessment Note: Pt is a 84yo female, resident of [place], is seen in the ED for nausea and vomiting. Pt is a resident at [facility]. Pt's Primary Care Provider is Dr. Alyce Mancilla and insurance is [facility] Medicare. Reviewed chart and discussed with multidisciplinary team pt's medical status and initial discharge needs. FINISH MACHINE TENDER recieved a call from pt POA/nihumaira, Amelia Diop, who stated concerns of pt discharging from facility with the way she was found. She states pt was found disoriented and in her own vomit and feces. POA states [facility] will not accept pt back due to no norovirus test completed - it is reported pt is not able to provide a stool sample for this test, other [place] medically cleared by provider. FINISH MACHINE TENDER provided reflective listening and emotional support for family member. No needs identified for social work at this time, pt to be transported by nihumaira when she arrives from [place]. Plan: Pt to discharge back to [facility] or with family until cleared to return to facility. Lurdes Dejesus SENIOR PHP DEVELOPER Discharge Planning/Care Management CM Discharge Assessment Start: 03/15/25 19:20 Freq: Status: Active Protocol: Document 03/15/25 19:20 MW (Rec: 03/15/25 19:23 MW [id number]) Discharge Planning Assessment Assigned Finish Photographer CAROLYNE Chatman DPOA/Assigned Designee Name Carlos Green/EVELYNE Contact Information [phone] Advance Directives? Yes Advance Directives on File No History Provided By Patient,Family Member,Medical Record Has Patient been admitted in last 30 No days? Prior Living Arrangements Assisted Living Comment [facility] Household Members none Type of transporation used prior to Relies on Others admit Facility Name Admitted From: [facility] Willing to Return to Facility? Yes Independent with ADL's No Is patient alert and oriented? No: Hx dementia Caregiver for Another No Patient/Family Preference LTAC Barriers to Discharge Yes Comment [facility] not willing to accept pt without Norovirus test, pt not able to give stool sample. Discharge Plan Assisted Living Facility Transportation Arrangement family in POV Review Status In Process Please Provide Date Initial DC 03/15/25 Assessment Was Performed Next Review Type Continued Stay Review
[2025-03-15] MEDS: QUETIAPINE 25 MG TABLET PO (19:29)
[2025-03-15] MEDS: DONEPEZIL 5 MG TABLET 10 MG PO (19:29)
== END 2025-03-15 19:43 | disposition home or self-care (01) ==
PROVIDERS: Emergency Provider Emergency Medicine; PCP Family Medicine
DX: R11.10 Vomiting, unspecified (principal); R19.7 Diarrhea, unspecified; F03.90 Unspecified dementia, unspecified severity, without behavioral disturbance, psychotic disturbance, mood disturbance, and anxiety
CPT/HCPCS: 36415; 70450; 71045; 80053; 81001; 85025; 87086; 96372; 99283; 99284; J1630